=== PATIENT | male | born 1985 | race Caucasian/White ===

== ENCOUNTER 2021-03-12 20:18 | Inpatient (IN) | payer OTHER ==
[2021-03-12] MEDS ORDERED: Thiamine 100 MG Tab PO ONE (21:22)
[2021-03-12] MEDS ORDERED: Sodium Chloride 0.9% 2.5 ML Syringe FLUSH PRN (21:22)
[2021-03-12] MEDS ORDERED: Sodium Chloride 0.9% 10 ML Syringe FLUSH PRN (21:22)
[2021-03-12] MEDS ORDERED: Folic Acid 1 MG Tab PO ONE (21:22)
[2021-03-12] MEDS ORDERED: Ondansetron 4 MG/2 ML SDV IVPUSH STA (21:49)
--- NOTE | 2021-03-12 22:07 | EDM.PDOC ---
ED HPI GENERAL MEDICAL PROBLEM - General Chief Complaint: Drug or Alcohol Abuse Stated Complaint: ANXIETY, ALCOHOL Time Seen by Provider: 03/12/21 20:59 - History of Present Illness INITIAL COMMENTS - FREE TEXT/NARRATIVE: 35-year-old male presents with concerns for alcohol withdrawal. For the last 2 months patient has been drinking approximately 1/5 of vodka twice daily. No nausea or vomiting. Patient does have significant tremor when he does not drink. He denies history of seizure. He denies any HI or SI. He denies any vomiting. He denies any other medications or medical problems he denies any other drugs. He states that when he does not drink he develops profound shaking and then drinks in order to stop the shakes. - Related Data Allergies Allergy/AdvReac Type Severity Reaction Status Date / Time No Known Allergies Allergy Verified 03/12/21 20:54 Home Meds: Home Meds . [No Known Home Meds] 03/12/21 [History] ED ROS GENERAL - Review of Systems Review Of Systems: See Below Free Text/Narrative/Comment: General: Per HPI Skin: No rash. Eyes: No vision problems. ENT: No sore throat. Neck: No neck stiffness. Respiratory: No shortness of breath. Cardiac: No chest pain. Gastrointestinal: No nausea, vomiting or abdominal pain. Urinary: No dysuria. Musculoskeletal: No myalgias/arthralgias. Neurologic: Per HPI ED EXAM, GENERAL - Physical Exam Exam: See Below Free Text/Narrative:: General Appearance: No acute distress, appears comfortable Skin: No rash HEENT: Normocephalic/atraumatic, sclera anicteric, mucous membranes moist Neck: Normal range of motion Chest and Lungs: Bilateral breath sounds, clear to auscultation Cardiovascular: Regular rate and rhythm, no murmur Abdomen: Soft, non-tender Back: Normal Musculoskeletal: No edema or tenderness Neurologic: Awake, alert, no obvious deficits, moving all extremities, appears anxious, involuntary tremor, tongue fasciculations Psychiatric: Appropriate, cooperative Course - Vital Signs Last Recorded V/S: Last Vital Signs Temp 98.6 F 03/12/21 20:47 Pulse 113 H 03/13/21 00:23 Resp 20 03/13/21 00:23 BP 124/84 03/13/21 00:23 Pulse Ox 95 03/13/21 00:23 - Orders/Labs/Meds Orders: Active Orders 24 hr Category Date Time Status Sodium Chloride 0.9% [Saline Flush] Med 03/12/21 21:22 Active 10 ml FLUSH ASDIRECTED PRN Sodium Chloride 0.9% [Saline Flush] Med 03/12/21 21:22 Active 2.5 ml FLUSH ASDIRECTED PRN Saline Lock Insert [OM.PC] Stat Oth 03/12/21 21:22 Ordered Medication Orders Sodium Chloride (Sodium Chloride 0.9% 10 Ml Syringe) 10 ml FLUSH ASDIRECTED PRN PRN Reason: Keep Vein Open Sodium Chloride (Sodium Chloride 0.9% 2.5 Ml Syringe) 2.5 ml FLUSH ASDIRECTED PRN PRN Reason: Keep Vein Open Labs: Laboratory Tests 03/12/21 03/12/21 03/12/21 Range/Units 20:55 21:45 21:45 WBC 4.56 (4.0-11.0) K/uL RBC 5.20 (4.50-5.90) M/uL Hgb 15.9 (13.0-17.0) g/dL Hct 45.2 (38.0-50.0) % MCV 86.9 (80.0-98.0) fL MCH 30.6 (27.0-32.0) pg MCHC 35.2 (31.0-37.0) g/dL RDW Std Deviation 42.9 (28.0-62.0) fl RDW Coeff of Negrita 14 (11.0-15.0) % Plt Count 215 (150-400) K/uL MPV 8.50 (7.40-12.00) fL Neut % (Auto) 31.8 L (48.0-80.0) % Lymph % (Auto) 56.8 H (16.0-40.0) % [place] % (Auto) 9.4 (0.0-15.0) % Eos % (Auto) 1.3 (0.0-7.0) % Baso % (Auto) 0.7 (0.0-1.5) % Neut # (Auto) 1.5 (1.4-5.7) K/uL Lymph # (Auto) 2.6 H (0.6-2.4) K/uL [place] # (Auto) 0.4 (0.0-0.8) K/uL Eos # (Auto) 0.1 (0.0-0.7) K/uL Baso # (Auto) 0.0 (0.0-0.1) K/uL Nucleated RBC % 0.0 /100WBC Nucleated RBCs # 0 K/uL Sodium 143 (136-148) mmol/L Potassium 3.8 (3.5-5.1) mmol/L Chloride 104 (98-107) mmol/L Carbon Dioxide 26.8 (21.0-32.0) mmol/L BUN 11 (7.0-18.0) mg/dL Creatinine 1.0 (0.8-1.3) mg/dL Est Cr Clr Drug Dosing 126.58 mL/min Estimated GFR (MDRD) > 60.0 ml/min Glucose 95 (74-106) mg/dL Calcium 8.0 L (8.5-10.1) mg/dL Magnesium 2.0 (1.8-2.4) mg/dL Total Bilirubin 0.4 (0.2-1.0) mg/dL AST 153 H (15-37) IU/L ALT 199 H (14-63) IU/L Alkaline Phosphatase 71 (46-116) U/L Total Protein 8.0 (6.4-8.2) g/dL Albumin 4.2 (3.4-5.0) g/dL Globulin 3.8 (2.6-4.0) g/dL Albumin/Globulin Ratio 1.1 (0.9-1.6) Urine Color YELLOW Urine Appearance CLEAR Urine pH 6.5 (5.0-8.0) Ur Specific Trail 1.025 (1.001-1.035) Urine Protein 30 H (NEGATIVE) mg/dL Urine Glucose (UA) NEGATIVE (NEGATIVE) mg/dL Urine Ketones NEGATIVE (NEGATIVE) mg/dL Urine Occult Blood NEGATIVE (NEGATIVE) Urine Nitrite NEGATIVE (NEGATIVE) Urine Bilirubin NEGATIVE (NEGATIVE) Urine Urobilinogen 1.0 (<2.0) EU/dL Ur Leukocyte Esterase NEGATIVE (NEGATIVE) Urine RBC 0-2 (0-2/HPF) Urine WBC 0-2 (0-5/HPF) Ur Epithelial Cells RARE (NONE-FEW) Urine Bacteria RARE (NEGATIVE) Urine Mucus LIGHT (NONE-MOD) Ethyl Alcohol 371 mg/dL SARS-CoV-2 RNA (SYEDA) (NEGATIVE) 03/12/21 Range/Units 23:20 WBC (4.0-11.0) K/uL RBC (4.50-5.90) M/uL Hgb (13.0-17.0) g/dL Hct (38.0-50.0) % MCV (80.0-98.0) fL MCH (27.0-32.0) pg MCHC (31.0-37.0) g/dL RDW Std Deviation (28.0-62.0) fl RDW Coeff of Negrita (11.0-15.0) % Plt Count (150-400) K/uL MPV (7.40-12.00) fL Neut % (Auto) (48.0-80.0) % Lymph % (Auto) (16.0-40.0) % [place] % (Auto) (0.0-15.0) % Eos % (Auto) (0.0-7.0) % Baso % (Auto) (0.0-1.5) % Neut # (Auto) (1.4-5.7) K/uL Lymph # (Auto) (0.6-2.4) K/uL [place] # (Auto) (0.0-0.8) K/uL Eos # (Auto) (0.0-0.7) K/uL Baso # (Auto) (0.0-0.1) K/uL Nucleated RBC % /100WBC Nucleated RBCs # K/uL Sodium (136-148) mmol/L Potassium (3.5-5.1) mmol/L Chloride (98-107) mmol/L Carbon Dioxide (21.0-32.0) mmol/L BUN (7.0-18.0) mg/dL Creatinine (0.8-1.3) mg/dL Est Cr Clr Drug Dosing mL/min Estimated GFR (MDRD) ml/min Glucose (74-106) mg/dL Calcium (8.5-10.1) mg/dL Magnesium (1.8-2.4) mg/dL Total Bilirubin (0.2-1.0) mg/dL AST (15-37) IU/L ALT (14-63) IU/L Alkaline Phosphatase (46-116) U/L Total Protein (6.4-8.2) g/dL Albumin (3.4-5.0) g/dL Globulin (2.6-4.0) g/dL Albumin/Globulin Ratio (0.9-1.6) Urine Color Urine Appearance Urine pH (5.0-8.0) Ur Specific Trail (1.001-1.035) Urine Protein (NEGATIVE) mg/dL Urine Glucose (UA) (NEGATIVE) mg/dL Urine Ketones (NEGATIVE) mg/dL Urine Occult Blood (NEGATIVE) Urine Nitrite (NEGATIVE) Urine Bilirubin (NEGATIVE) Urine Urobilinogen (<2.0) EU/dL Ur Leukocyte Esterase (NEGATIVE) Urine RBC (0-2/HPF) Urine WBC (0-5/HPF) Ur Epithelial Cells (NONE-FEW) Urine Bacteria (NEGATIVE) Urine Mucus (NONE-MOD) Ethyl Alcohol mg/dL SARS-CoV-2 RNA (SYEDA) NEGATIVE (NEGATIVE) Meds: Medications Generic Name Dose Route Start Last Admin Trade Name Mitchell PRN Reason Stop Dose Admin Sodium Chloride 10 ml 03/12/21 21:22 Sodium Chloride 0.9% 10 Ml Syringe FLUSH ASDIRECTED PRN Keep Vein Open Sodium Chloride 2.5 ml 03/12/21 21:22 Sodium Chloride 0.9% 2.5 Ml Syringe FLUSH ASDIRECTED PRN Keep Vein Open Discontinued Medications Generic Name Dose Route Start Last Admin Trade Name Mitchell PRN Reason Stop Dose Admin Diazepam 5 mg 03/12/21 23:21 03/12/21 23:25 Diazepam 10 Mg/2 Ml Syringe IVPUSH 03/12/21 23:22 5 mg ONETIME ONE Administration Diazepam Confirm 03/12/21 23:23 03/13/21 00:22 Diazepam 10 Mg/2 Ml Syringe Administered 03/12/21 23:24 Not Given Dose 10 mg .ROUTE .STK-MED ONE Diazepam 10 mg 03/12/21 23:45 03/13/21 00:21 Diazepam 10 Mg/2 Ml Syringe IVPUSH 03/12/21 23:46 10 mg ONETIME ONE Administration Folic Acid 1 mg 03/12/21 21:22 03/12/21 22:19 Folic Acid 1 Mg Tab PO 03/12/21 21:23 1 mg ONETIME ONE Administration Ondansetron HCl 4 mg 03/12/21 21:49 03/12/21 22:00 Ondansetron 4 Mg/2 Ml Sdv IVPUSH 03/12/21 21:50 4 mg ONETIME STA Administration Thiamine HCl 100 mg 03/12/21 21:22 03/12/21 22:19 Thiamine 100 Mg Tab PO 03/12/21 21:23 100 mg ONETIME ONE Administration Departure - Departure Time of Disposition: 00:52 Disposition: Admitted As Inpatient 66 Condition: Fair Clinical Impression: Alcohol withdrawal - Discharge Information Referrals: PCP,None [Primary Care Provider] - Forms: ED Department Discharge Sepsis Event Note (ED) - Evaluation Sepsis Screening Result: No Definite Risk - Focused Exam Vital Signs: Vital Signs Temp Pulse Resp BP Pulse Ox 03/13/21 00:23 113 H 20 124/84 95 03/12/21 20:47 98.6 F 106 H 16 151/102 H 95 - My Orders Last 24 Hours: My Active Orders 03/12/21 21:22 Sodium Chloride 0.9% [Saline Flush] 10 ml FLUSH ASDIRECTED PRN Sodium Chloride 0.9% [Saline Flush] 2.5 ml FLUSH ASDIRECTED PRN Saline Lock Insert [OM.PC] Stat - Assessment/Plan Last 24 Hours: My Active Orders 03/12/21 21:22 Sodium Chloride 0.9% [Saline Flush] 10 ml FLUSH ASDIRECTED PRN Sodium Chloride 0.9% [Saline Flush] 2.5 ml FLUSH ASDIRECTED PRN Saline Lock Insert [OM.PC] Stat Assessment:: 35-year-old male presents with symptoms that are consistent with alcohol withdrawal. His CIWA for the nurses is 19. And that we does have alcohol in h is system my exam is also consistent with his acute alcohol withdrawal. He has tremor he has tongue fasciculations as well. Patient will be given 5 of IV Valium and we will repeat the CIWA 15 minutes later. Given the severity of his withdrawal despite still having alcohol in his system I think admission for stabilization is appropriate and the patient agrees with this. He was given thiamine and folate and his electrolytes are good and do not require repletion at this point. He does not have a prior history of seizure. 0050: Repeat CIWA after 10 mg valium is 10. Pt discussed with Dr. Trevino and given very heavy etOH hx will place in ICU overnight.
[2021-03-12 22:19] LABS: BLOOD UREA NITROGEN,BUN 11 mg/dL (7.0-18.0); CARBON DIOXIDE,CO2 26.8 mmol/L (21.0-32.0); CHLORIDE,CL 104 mmol/L (98-107); GLUCOSE RANDOM 95 mg/dL (74-106); POTASSIUM,K 3.8 mmol/L (3.5-5.1); SODIUM,NA 143 mmol/L (136-148)
[2021-03-13] MEDS ORDERED: Nicotine 21 MG/24 Hr Patch ONE (01:01)
[2021-03-13] MEDS: Nicotine 21 MG/24 Hr Patch TRDERM SCH ×2 (01:03→08:30)
[2021-03-13] MEDS: Sodium Chloride 0.9% 1,000 ML IV SCH ×3 (01:29→17:41)
--- NOTE | 2021-03-13 02:26 | PCM.HP.2 ---
H&P History of Present Illness - General Date of Service: 03/13/21 Admit Problem/Dx: Admission Diagnosis/Problem Admission Diagnosis/Problem Alcohol withdrawal syndrome - History of Present Illness Initial Comments - Free Text/Narative: 35 yo male with pmh of alcohol abuse presents to the ED requesting help detox. Patient reports he drinks a liter of vodka a day. For the past five years he has been drinking on and off. He reports for the past three days he has not slept. He reports he drinks in order to help him sleep. He reports anxiety over his family situation. When he stops drinking he reports severe tremors. - Related Data Allergies/Adverse Reactions: Allergies Allergy/AdvReac Type Severity Reaction Status Date / Time No Known Allergies Allergy Verified 03/12/21 20:54 Home Medications: Home Meds ARIPiprazole [Abilify] 10 mg PO DAILY 03/13/21 [History] Zolpidem Tartrate 5 mg PO Q2D PRN 03/13/21 [History] hydrOXYzine pamoate [Hydroxyzine Pamoate] 25 mg PO QID PRN 03/13/21 [History] valACYclovir [Valtrex] 1 gm PO BID 03/13/21 [History] Past Medical History - Past Health History Medical/Surgical History: Denies Medical/Surgical History Psychiatric History: Reports: Anxiety Social & Family History - Family History Family Medical History: No Pertinent Family History - Tobacco Use Tobacco Use Status *Q: Never Tobacco User Second Hand Smoke Exposure: No - Recreational Drug Use Recreational Drug Use: No H&P Review of Systems - Review of Systems: Review Of Systems: Comprehensive ROS is negative, except as noted in HPI. Exam - Exam Exam: See Below - Vital Signs Vital Signs: Last Vital Signs Temp 37.0 C 03/12/21 20:47 Pulse 102 H 03/13/21 01:34 Resp 18 03/13/21 01:34 BP 131/84 03/13/21 01:34 Pulse Ox 95 03/13/21 01:34 Weight: 95.254 kg - Exam General: Alert, Oriented HEENT: Mucosa Moist & [place] Neck: Supple Lungs: Clear to Auscultation, Normal Respiratory Effort Cardiovascular: Regular Rate, Regular Rhythm GI/Abdominal Exam: Normal Bowel Sounds, Soft, Non-Tender Extremities: Non-Tender, No Pedal Edema Skin: Warm, Dry, Intact Neurological: Cranial Nerves Intact. No: Focal Deficit - Patient Data Lab Results Last 24 hrs: Laboratory Results - last 24 hr 03/12/21 03/12/21 03/12/21 Range/Units 20:55 21:45 21:45 WBC 4.56 (4.0-11.0) K/uL RBC 5.20 (4.50-5.90) M/uL Hgb 15.9 (13.0-17.0) g/dL Hct 45.2 (38.0-50.0) % MCV 86.9 (80.0-98.0) fL MCH 30.6 (27.0-32.0) pg MCHC 35.2 (31.0-37.0) g/dL RDW Std Deviation 42.9 (28.0-62.0) fl RDW Coeff of Negrita 14 (11.0-15.0) % Plt Count 215 (150-400) K/uL MPV 8.50 (7.40-12.00) fL Neut % (Auto) 31.8 L (48.0-80.0) % Lymph % (Auto) 56.8 H (16.0-40.0) % [place] % (Auto) 9.4 (0.0-15.0) % Eos % (Auto) 1.3 (0.0-7.0) % Baso % (Auto) 0.7 (0.0-1.5) % Neut # (Auto) 1.5 (1.4-5.7) K/uL Lymph # (Auto) 2.6 H (0.6-2.4) K/uL [place] # (Auto) 0.4 (0.0-0.8) K/uL Eos # (Auto) 0.1 (0.0-0.7) K/uL Baso # (Auto) 0.0 (0.0-0.1) K/uL Nucleated RBC % 0.0 /100WBC Nucleated RBCs # 0 K/uL Sodium 143 (136-148) mmol/L Potassium 3.8 (3.5-5.1) mmol/L Chloride 104 (98-107) mmol/L Carbon Dioxide 26.8 (21.0-32.0) mmol/L BUN 11 (7.0-18.0) mg/dL Creatinine 1.0 (0.8-1.3) mg/dL Est Cr Clr Drug Dosing 126.58 mL/min Estimated GFR (MDRD) > 60.0 ml/min Glucose 95 (74-106) mg/dL Calcium 8.0 L (8.5-10.1) mg/dL Magnesium 2.0 (1.8-2.4) mg/dL Total Bilirubin 0.4 (0.2-1.0) mg/dL AST 153 H (15-37) IU/L ALT 199 H (14-63) IU/L Alkaline Phosphatase 71 (46-116) U/L Total Protein 8.0 (6.4-8.2) g/dL Albumin 4.2 (3.4-5.0) g/dL Globulin 3.8 (2.6-4.0) g/dL Albumin/Globulin Ratio 1.1 (0.9-1.6) Urine Color YELLOW Urine Appearance CLEAR Urine pH 6.5 (5.0-8.0) Ur Specific [place] 1.025 (1.001-1.035) Urine Protein 30 H (NEGATIVE) mg/dL Urine Glucose (UA) NEGATIVE (NEGATIVE) mg/dL Urine Ketones NEGATIVE (NEGATIVE) mg/dL Urine Occult Blood NEGATIVE (NEGATIVE) Urine Nitrite NEGATIVE (NEGATIVE) Urine Bilirubin NEGATIVE (NEGATIVE) Urine Urobilinogen 1.0 (<2.0) EU/dL Ur Leukocyte Esterase NEGATIVE (NEGATIVE) Urine RBC 0-2 (0-2/HPF) Urine WBC 0-2 (0-5/HPF) Ur Epithelial Cells RARE (NONE-FEW) Urine Bacteria RARE (NEGATIVE) Urine Mucus LIGHT (NONE-MOD) Ethyl Alcohol 371 mg/dL SARS-CoV-2 RNA (SYEDA) (NEGATIVE) 03/12/21 Range/Units 23:20 WBC (4.0-11.0) K/uL RBC (4.50-5.90) M/uL Hgb (13.0-17.0) g/dL Hct (38.0-50.0) % MCV (80.0-98.0) fL MCH (27.0-32.0) pg MCHC (31.0-37.0) g/dL RDW Std Deviation (28.0-62.0) fl RDW Coeff of Negrita (11.0-15.0) % Plt Count (150-400) K/uL MPV (7.40-12.00) fL Neut % (Auto) (48.0-80.0) % Lymph % (Auto) (16.0-40.0) % [place] % (Auto) (0.0-15.0) % Eos % (Auto) (0.0-7.0) % Baso % (Auto) (0.0-1.5) % Neut # (Auto) (1.4-5.7) K/uL Lymph # (Auto) (0.6-2.4) K/uL [place] # (Auto) (0.0-0.8) K/uL Eos # (Auto) (0.0-0.7) K/uL Baso # (Auto) (0.0-0.1) K/uL Nucleated RBC % /100WBC Nucleated RBCs # K/uL Sodium (136-148) mmol/L Potassium (3.5-5.1) mmol/L Chloride (98-107) mmol/L Carbon Dioxide (21.0-32.0) mmol/L BUN (7.0-18.0) mg/dL Creatinine (0.8-1.3) mg/dL Est Cr Clr Drug Dosing mL/min Estimated GFR (MDRD) ml/min Glucose (74-106) mg/dL Calcium (8.5-10.1) mg/dL Magnesium (1.8-2.4) mg/dL Total Bilirubin (0.2-1.0) mg/dL AST (15-37) IU/L ALT (14-63) IU/L Alkaline Phosphatase (46-116) U/L Total Protein (6.4-8.2) g/dL Albumin (3.4-5.0) g/dL Globulin (2.6-4.0) g/dL Albumin/Globulin Ratio (0.9-1.6) Urine Color Urine Appearance Urine pH (5.0-8.0) Ur Specific [place] (1.001-1.035) Urine Protein (NEGATIVE) mg/dL Urine Glucose (UA) (NEGATIVE) mg/dL Urine Ketones (NEGATIVE) mg/dL Urine Occult Blood (NEGATIVE) Urine Nitrite (NEGATIVE) Urine Bilirubin (NEGATIVE) Urine Urobilinogen (<2.0) EU/dL Ur Leukocyte Esterase (NEGATIVE) Urine RBC (0-2/HPF) Urine WBC (0-5/HPF) Ur Epithelial Cells (NONE-FEW) Urine Bacteria (NEGATIVE) Urine Mucus (NONE-MOD) Ethyl Alcohol mg/dL SARS-CoV-2 RNA (SYEDA) NEGATIVE (NEGATIVE) Result Diagrams: 03/13/21 06:30 03/13/21 06:30 Sepsis Event Note - Evaluation Sepsis Screening Result: No Definite Risk - Focused Exam Vital Signs: Vital Signs Temp Pulse Resp BP Pulse Ox 03/13/21 01:34 102 H 18 131/84 95 03/13/21 00:23 113 H 20 124/84 95 03/12/21 20:47 37.0 C 106 H 16 151/102 H 95 Problem List Initiated/Reviewed/Updated: Yes Orders Last 24hrs: Active Orders 24 hr Category Date Time Status Patient Status [ADT] Routine ADT 03/13/21 00:52 Active Antiembolic Devices [RC] Q12H Care 03/13/21 01:08 Active Oxygen Therapy [RC] PRN Care 03/13/21 01:07 Active Up ad Justa [RC] ASDIRECTED Care 03/13/21 01:07 Active VTE/DVT Education [RC] PER UNIT ROUTINE Care 03/13/21 01:07 Active Vital Signs [RC] Q1H Care 03/13/21 01:07 Active Regular Diet [DIET] Diet 03/13/21 Breakfast Active CBC WITH AUTO DIFF [HEME] AM Lab 03/13/21 05:11 Ordered COMPREHENSIVE METABOLIC PN,CMP [CHEM] AM Lab 03/13/21 05:11 Ordered INR,PT,PROTHROMBIN TIME [COAG] AM Lab 03/13/21 05:11 Ordered MAGNESIUM [CHEM] AM Lab 03/13/21 05:11 Ordered PHOSPHORUS [CHEM] AM Lab 03/13/21 05:11 Ordered Folic Acid Med 03/13/21 09:00 Active 1 mg SUBCUT DAILY LORazepam [Ativan] Med 03/13/21 01:05 Active See Protocol IVPUSH Q4H PRN Nicotine [Habitrol] Med 03/13/21 01:00 Active 21 mg TRDERM DAILY Sodium Chloride 0.9% [Normal Saline] 1,000 ml Med 03/13/21 01:15 Active IV ASDIRECTED Sodium Chloride 0.9% [Saline Flush] Med 08/02/21 21:22 Active 10 ml FLUSH ASDIRECTED PRN Sodium Chloride 0.9% [Saline Flush] Med 03/12/21 21:22 Active 2.5 ml FLUSH ASDIRECTED PRN Thiamine [Vitamin B-1] 100 mg Med 03/13/21 09:00 Active Sodium Chloride 0.9% [Normal Saline] 100 ml IV DAILY diazePAM [Valium.] Med 03/13/21 09:00 Active 5 mg PO BID Saline Lock Insert [OM.PC] Stat Oth 03/12/21 21:22 Ordered Sequential Compression Device [OM.PC] Per Unit Routine Oth 03/13/21 01:07 Ordered Resuscitation Status Routine Resus Stat 03/13/21 01:07 Ordered Medication Orders Diazepam (Diazepam 5 Mg Tab) 5 mg PO BID KEVIN Folic Acid (Folic Acid 50 Mg/10 Ml Mdv) 1 mg SUBCUT DAILY [facility] Thiamine HCl 100 mg/ Sodium (Chloride) 101 mls @ 202 mls/hr IV DAILY [facility] Sodium Chloride (Normal Saline) 1,000 mls @ 125 mls/hr IV ASDIRECTED [facility] Last Admin: 03/13/21 01:29 Dose: 125 mls/hr Documented by: SARAH Lorazepam (Lorazepam 2 Mg/Ml Sdv) 0 mg IVPUSH Q4H PRN; Protocol PRN Reason: CIWWA Nicotine (Nicotine 21 Mg/24 Hr Patch) 21 mg TRDERM DAILY [facility] Last Admin: 03/13/21 01:03 Dose: 21 mg Documented by: SARAH Sodium Chloride (Sodium Chloride 0.9% 10 Ml Syringe) 10 ml FLUSH ASDIRECTED PRN PRN Reason: Keep Vein Open Sodium Chloride (Sodium Chloride 0.9% 2.5 Ml Syringe) 2.5 ml FLUSH ASDIRECTED PRN PRN Reason: Keep Vein Open Assessment/Plan Comment:: 35 yo male admitted for ETOH detox. We will place on CIWAA protocol with prn ativan. Patient was given valium in the ED. We will continue Valium BID. We will give thiamine and folic acid.
[2021-03-13] MEDS: LORazepam 2 MG/ML SDV IVPUSH PRN ×8 (02:55→21:47)
--- NOTE | 2021-03-13 05:45 | PN ---
THC Physician - Brief Progress [id number]/03/2021 05:31[facility] Yesica willoughby, OZ - HARMONY (DEEPA) - ORLY SINGHDate of Service 03/13/2021 05:31HPI/Events o f Note HPI: 35 y old male with alcohol addiction requested help with detoxificationDrinking 1 liter v odka dailyPlaced on CIWA with ativan On videoResting, [id number] 134/71 95% - was 93% recorded onceA /RecAtivan as per CIWAAnxiety/insomnia to be evaluated K 3.8 being recheckedReceived valiumOn thiamin e, folic acidMonitor oxygenationD/w RNInterventions Major-Other: alcohol withdrawalElectronically Sig benji by: Dyllan Pham) on 03/13/2021 05:45
[2021-03-13 07:07] LABS: BLOOD UREA NITROGEN,BUN 13 mg/dL (7.0-18.0); CARBON DIOXIDE,CO2 28.6 mmol/L (21.0-32.0); CHLORIDE,CL 103 mmol/L (98-107); GLUCOSE RANDOM 89 mg/dL (74-106); POTASSIUM,K 3.1 mmol/L (3.5-5.1); SODIUM,NA 139 mmol/L (136-148)
[2021-03-13] MEDS ORDERED: Sodium Chloride 0.9% 2.5 ML Syringe FLUSH PRN (08:12)
--- NOTE | 2021-03-13 08:17 | PCM.PN ---
- General Info Date of Service: 03/13/21 Admission Dx/Problem (Free Text): Admission Diagnosis/Problem Admission Diagnosis/Problem Alcohol withdrawal syndrome Subjective Update: Feeling nauseated this morning, but also hungry. Ate small amount of breakfast. Denies chest pain or SOB. Tremors continue with ataxia and diaphoresis. Denies hallucinations. Not urinating Functional Status: Reports: Pain Controlled, Tolerating Diet. Denies: Ambu lating, Urinating - Review of Systems General: Reports: Weakness, Fatigue, Malaise HEENT: Reports: No Symptoms. Denies: Headaches, Sore Throat, Visual Changes Pulmonary: Reports: No Symptoms. Denies: Shortness of Breath Cardiovascular: Reports: No Symptoms. Denies: Chest Pain Gastrointestinal: Reports: Constipation, Nausea. Denies: Abdominal Pain, Vomiting Genitourinary: Reports: No Symptoms. Denies: Dysuria, Frequency, Burning Musculoskeletal: Reports: No Symptoms Skin: Reports: No Symptoms Neurological: Reports: Tremors, Difficulty Walking (ataxia) Psychiatric: Reports: No Symptoms - Patient Data Vitals - Most Recent: Last Vital Signs Temp 98 F 03/13/21 03:00 Pulse 102 H 03/13/21 01:34 Resp 18 03/13/21 07:00 BP 128/78 03/13/21 07:00 Pulse Ox 95 03/13/21 07:00 Weight - Most Recent: 79.787 kg I&O - Last 24 Hours: Intake & Output 03/12/21 03/13/21 03/13/21 22:59 06:59 14:59 Intake Total 1050 Balance 1050 Lab Results Last 24 Hours: Laboratory Results - last 24 hr 03/12/21 03/12/21 03/12/21 Range/Units 20:55 21:45 21:45 WBC 4.56 (4.0-11.0) K/uL RBC 5.20 (4.50-5.90) M/uL Hgb 15.9 (13.0-17.0) g/dL Hct 45.2 (38.0-50.0) % MCV 86.9 (80.0-98.0) fL MCH 30.6 (27.0-32.0) pg MCHC 35.2 (31.0-37.0) g/dL RDW Std Deviation 42.9 (28.0-62.0) fl RDW Coeff of Negrita 14 (11.0-15.0) % Plt Count 215 (150-400) K/uL MPV 8.50 (7.40-12.00) fL Neut % (Auto) 31.8 L (48.0-80.0) % Lymph % (Auto) 56.8 H (16.0-40.0) % [place] % (Auto) 9.4 (0.0-15.0) % Eos % (Auto) 1.3 (0.0-7.0) % Baso % (Auto) 0.7 (0.0-1.5) % Neut # (Auto) 1.5 (1.4-5.7) K/uL Lymph # (Auto) 2.6 H (0.6-2.4) K/uL [place] # (Auto) 0.4 (0.0-0.8) K/uL Eos # (Auto) 0.1 (0.0-0.7) K/uL Baso # (Auto) 0.0 (0.0-0.1) K/uL Nucleated RBC % 0.0 /100WBC Nucleated RBCs # 0 K/uL INR Sodium 143 (136-148) mmol/L Potassium 3.8 (3.5-5.1) mmol/L Chloride 104 (98-107) mmol/L Carbon Dioxide 26.8 (21.0-32.0) mmol/L BUN 11 (7.0-18.0) mg/dL Creatinine 1.0 (0.8-1.3) mg/dL Est Cr Clr Drug Dosing 126.58 mL/min Estimated GFR (MDRD) > 60.0 ml/min Glucose 95 (74-106) mg/dL Calcium 8.0 L (8.5-10.1) mg/dL Phosphorus (2.6-4.7) mg/dL Magnesium 2.0 (1.8-2.4) mg/dL Total Bilirubin 0.4 (0.2-1.0) mg/dL AST 153 H (15-37) IU/L ALT 199 H (14-63) IU/L Alkaline Phosphatase 71 (46-116) U/L Total Protein 8.0 (6.4-8.2) g/dL Albumin 4.2 (3.4-5.0) g/dL Globulin 3.8 (2.6-4.0) g/dL Albumin/Globulin Ratio 1.1 (0.9-1.6) Urine Color YELLOW Urine Appearance CLEAR Urine pH 6.5 (5.0-8.0) Ur Specific Buckner 1.025 (1.001-1.035) Urine Protein 30 H (NEGATIVE) mg/dL Urine Glucose (UA) NEGATIVE (NEGATIVE) mg/dL Urine Ketones NEGATIVE (NEGATIVE) mg/dL Urine Occult Blood NEGATIVE (NEGATIVE) Urine Nitrite NEGATIVE (NEGATIVE) Urine Bilirubin NEGATIVE (NEGATIVE) Urine Urobilinogen 1.0 (<2.0) EU/dL Ur Leukocyte Esterase NEGATIVE (NEGATIVE) Urine RBC 0-2 (0-2/HPF) Urine WBC 0-2 (0-5/HPF) Ur Epithelial Cells RARE (NONE-FEW) Urine Bacteria RARE (NEGATIVE) Urine Mucus LIGHT (NONE-MOD) Ethyl Alcohol 371 mg/dL SARS-CoV-2 RNA (SYEDA) (NEGATIVE) 03/12/21 03/13/21 03/13/21 Range/Units 23:20 06:30 06:30 WBC 5.61 (4.0-11.0) K/uL RBC 4.29 L (4.50-5.90) M/uL Hgb 13.0 (13.0-17.0) g/dL Hct 37.4 L (38.0-50.0) % MCV 87.2 (80.0-98.0) fL MCH 30.3 (27.0-32.0) pg MCHC 34.8 (31.0-37.0) g/dL RDW Std Deviation 42.9 (28.0-62.0) fl RDW Coeff of Negrita 13 (11.0-15.0) % Plt Count 183 (150-400) K/uL MPV 8.20 (7.40-12.00) fL Neut % (Auto) 36.3 L (48.0-80.0) % Lymph % (Auto) 50.8 H (16.0-40.0) % [place] % (Auto) 10.3 (0.0-15.0) % Eos % (Auto) 2.1 (0.0-7.0) % Baso % (Auto) 0.5 (0.0-1.5) % Neut # (Auto) 2.0 (1.4-5.7) K/uL Lymph # (Auto) 2.9 H (0.6-2.4) K/uL [place] # (Auto) 0.6 (0.0-0.8) K/uL Eos # (Auto) 0.1 (0.0-0.7) K/uL Baso # (Auto) 0.0 (0.0-0.1) K/uL Nucleated RBC % 0.0 /100WBC Nucleated RBCs # 0 K/uL INR 0.96 Sodium (136-148) mmol/L Potassium (3.5-5.1) mmol/L Chloride (98-107) mmol/L Carbon Dioxide (21.0-32.0) mmol/L BUN (7.0-18.0) mg/dL Creatinine (0.8-1.3) mg/dL Est Cr Clr Drug Dosing mL/min Estimated GFR (MDRD) ml/min Glucose (74-106) mg/dL Calcium (8.5-10.1) mg/dL Phosphorus (2.6-4.7) mg/dL Magnesium (1.8-2.4) mg/dL Total Bilirubin (0.2-1.0) mg/dL AST (15-37) IU/L ALT (14-63) IU/L Alkaline Phosphatase (46-116) U/L Total Protein (6.4-8.2) g/dL Albumin (3.4-5.0) g/dL Globulin (2.6-4.0) g/dL Albumin/Globulin Ratio (0.9-1.6) Urine Color Urine Appearance Urine pH (5.0-8.0) Ur Specific Buckner (1.001-1.035) Urine Protein (NEGATIVE) mg/dL Urine Glucose (UA) (NEGATIVE) mg/dL Urine Ketones (NEGATIVE) mg/dL Urine Occult Blood (NEGATIVE) Urine Nitrite (NEGATIVE) Urine Bilirubin (NEGATIVE) Urine Urobilinogen (<2.0) EU/dL Ur Leukocyte Esterase (NEGATIVE) Urine RBC (0-2/HPF) Urine WBC (0-5/HPF) Ur Epithelial Cells (NONE-FEW) Urine Bacteria (NEGATIVE) Urine Mucus (NONE-MOD) Ethyl Alcohol mg/dL SARS-CoV-2 RNA (SYEDA) NEGATIVE (NEGATIVE) 03/13/21 Range/Units 06:30 WBC (4.0-11.0) K/uL RBC (4.50-5.90) M/uL Hgb (13.0-17.0) g/dL Hct (38.0-50.0) % MCV (80.0-98.0) fL MCH (27.0-32.0) pg MCHC (31.0-37.0) g/dL RDW Std Deviation (28.0-62.0) fl RDW Coeff of Negrita (11.0-15.0) % Plt Count (150-400) K/uL MPV (7.40-12.00) fL Neut % (Auto) (48.0-80.0) % Lymph % (Auto) (16.0-40.0) % [place] % (Auto) (0.0-15.0) % Eos % (Auto) (0.0-7.0) % Baso % (Auto) (0.0-1.5) % Neut # (Auto) (1.4-5.7) K/uL Lymph # (Auto) (0.6-2.4) K/uL [place] # (Auto) (0.0-0.8) K/uL Eos # (Auto) (0.0-0.7) K/uL Baso # (Auto) (0.0-0.1) K/uL Nucleated RBC % /100WBC Nucleated RBCs # K/uL INR Sodium 139 (136-148) mmol/L Potassium 3.1 L (3.5-5.1) mmol/L Chloride 103 (98-107) mmol/L Carbon Dioxide 28.6 (21.0-32.0) mmol/L BUN 13 (7.0-18.0) mg/dL Creatinine 1.0 (0.8-1.3) mg/dL Est Cr Clr Drug Dosing 116.36 mL/min Estimated GFR (MDRD) > 60.0 ml/min Glucose 89 (74-106) mg/dL Calcium 7.7 L (8.5-10.1) mg/dL Phosphorus 3.5 (2.6-4.7) mg/dL Magnesium 1.4 L (1.8-2.4) mg/dL Total Bilirubin 0.5 (0.2-1.0) mg/dL AST 117 H (15-37) IU/L ALT 163 H (14-63) IU/L Alkaline Phosphatase 54 (46-116) U/L Total Protein 6.3 L (6.4-8.2) g/dL Albumin 3.3 L (3.4-5.0) g/dL Globulin 3.0 (2.6-4.0) g/dL Albumin/Globulin Ratio 1.1 (0.9-1.6) Urine Color Urine Appearance Urine pH (5.0-8.0) Ur Specific Buckner (1.001-1.035) Urine Protein (NEGATIVE) mg/dL Urine Glucose (UA) (NEGATIVE) mg/dL Urine Ketones (NEGATIVE) mg/dL Urine Occult Blood (NEGATIVE) Urine Nitrite (NEGATIVE) Urine Bilirubin (NEGATIVE) Urine Urobilinogen (<2.0) EU/dL Ur Leukocyte Esterase (NEGATIVE) Urine RBC (0-2/HPF) Urine WBC (0-5/HPF) Ur Epithelial Cells (NONE-FEW) Urine Bacteria (NEGATIVE) Urine Mucus (NONE-MOD) Ethyl Alcohol mg/dL SARS-CoV-2 RNA (SYEDA) (NEGATIVE) Med Orders - Current: Current Medications Acetaminophen (Acetaminophen 325 Mg Tab) 650 mg PO Q4H PRN PRN Reason: Pain/Fever Diazepam (Diazepam 5 Mg Tab) 5 mg PO BID FOR[facility]LY [facility], [facility]1983 Folic Acid (Folic Acid 50 Mg/10 Ml Mdv) 1 mg SUBCUT DAILY FORMERLY [facility], 1928–1983 Sodium Chloride (Normal Saline) 1,000 mls @ 125 mls/hr IV ASDIRECTED FORMERLY [facility], 1928–1983 Last Admin: 03/13/21 01:29 Dose: 125 mls/hr Documented by: Magnesium Sulfate 4 gm/ Premix 100 mls @ 50 mls/hr IV ONETIME ONE Stop: 03/13/21 10:11 Lorazepam (Lorazepam 2 Mg/Ml Sdv) 0 mg IVPUSH Q4H PRN; Protocol PRN Reason: CIWWA Last Admin: 03/13/21 02:55 Dose: 1 mg Documented by: Nicotine (Nicotine 21 Mg/24 Hr Patch) 21 mg TRDERM DAILY FOR[facility]LY [facility], 1928–1983 Last Admin: 03/13/21 01:03 Dose: 21 mg Documented by: Potassium Chloride (Potassium Chloride 20 Meq Tab.Er) 40 meq PO BID@0830,1300 FOR[facility], [facility]–1983 Stop: 03/13/21 13:01 Sodium Chloride (Sodium Chloride 0.9% 2.5 Ml Syringe) 2.5 ml FLUSH ASDIRECTED PRN PRN Reason: Keep Vein Open Thiamine HCl (Thiamine 200 Mg/2 Ml Mdv) 100 mg IVPUSH DAILY KEVIN Discontinued Medications Diazepam (Diazepam 10 Mg/2 Ml Syringe) 5 mg IVPUSH ONETIME ONE Stop: 03/12/21 23:22 Last Admin: 03/12/21 23:25 Dose: 5 mg Documented by: Diazepam (Diazepam 10 Mg/2 Ml Syringe) Confirm Administered Dose 10 mg .ROUTE .STK-MED ONE Stop: 03/12/21 23:24 Last Admin: 03/13/21 00:22 Dose: Not Given Documented by: Diazepam (Diazepam 10 Mg/2 Ml Syringe) 10 mg IVPUSH ONETIME ONE Stop: 03/12/21 23:46 Last Admin: 03/13/21 00:21 Dose: 10 mg Documented by: Folic Acid (Folic Acid 1 Mg Tab) 1 mg PO ONETIME ONE Stop: 03/12/21 21:23 Last Admin: 03/12/21 22:19 Dose: 1 mg Documented by: Nicotine (Nicotine 21 Mg/24 Hr Patch) Confirm Administered Dose 21 mg .ROUTE .STK-MED ONE Stop: 03/13/21 01:02 Last Admin: 03/13/21 01:08 Dose: Not Given Documented by: Ondansetron HCl (Ondansetron 4 Mg/2 Ml Sdv) 4 mg IVPUSH ONETIME STA Stop: 03/12/21 21:50 Last Admin: 03/12/21 22:00 Dose: 4 mg Documented by: Sodium Chloride (Sodium Chloride 0.9% 10 Ml Syringe) 10 ml FLUSH ASDIRECTED PRN PRN Reason: Keep Vein Open Sodium Chloride (Sodium Chloride 0.9% 2.5 Ml Syringe) 2.5 ml FLUSH ASDIRECTED PRN PRN Reason: Keep Vein Open Thiamine HCl (Thiamine 100 Mg Tab) 100 mg PO ONETIME ONE Stop: 03/12/21 21:23 Last Admin: 03/12/21 22:19 Dose: 100 mg Documented by: - Exam Quality Assessment: Supplemental Oxygen General: Alert, Oriented, Cooperative, No Acute Distress Neck: Supple Lungs: Clear to Auscultation, Normal Respiratory Effort Cardiovascular: Regular Rate, Regular Rhythm GI/Abdominal Exam: Normal Bowel Sounds, Soft, Non-Tender Extremities: Normal Inspection, Normal Range of Motion, Non-Tender, No Pedal Edema Neurological: No New Focal Deficit Psy/Mental Status: Alert, Normal Affect, Normal Mood - Patient Data Lab Results Last 24 hrs: Laboratory Results - last 24 hr 03/12/21 03/12/21 03/12/21 Range/Units 20:55 21:45 21:45 WBC 4.56 (4.0-11.0) K/uL RBC 5.20 (4.50-5.90) M/uL Hgb 15.9 (13.0-17.0) g/dL Hct 45.2 (38.0-50.0) % MCV 86.9 (80.0-98.0) fL MCH 30.6 (27.0-32.0) pg MCHC 35.2 (31.0-37.0) g/dL RDW Std Deviation 42.9 (28.0-62.0) fl RDW Coeff of Negrita 14 (11.0-15.0) % Plt Count 215 (150-400) K/uL MPV 8.50 (7.40-12.00) fL Neut % (Auto) 31.8 L (48.0-80.0) % Lymph % (Auto) 56.8 H (16.0-40.0) % [place] % (Auto) 9.4 (0.0-15.0) % Eos % (Auto) 1.3 (0.0-7.0) % Baso % (Auto) 0.7 (0.0-1.5) % Neut # (Auto) 1.5 (1.4-5.7) K/uL Lymph # (Auto) 2.6 H (0.6-2.4) K/uL [place] # (Auto) 0.4 (0.0-0.8) K/uL Eos # (Auto) 0.1 (0.0-0.7) K/uL Baso # (Auto) 0.0 (0.0-0.1) K/uL Nucleated RBC % 0.0 /100WBC Nucleated RBCs # 0 K/uL INR Sodium 143 (136-148) mmol/L Potassium 3.8 (3.5-5.1) mmol/L Chloride 104 (98-107) mmol/L Carbon Dioxide 26.8 (21.0-32.0) mmol/L BUN 11 (7.0-18.0) mg/dL Creatinine 1.0 (0.8-1.3) mg/dL Est Cr Clr Drug Dosing 126.58 mL/min Estimated GFR (MDRD) > 60.0 ml/min Glucose 95 (74-106) mg/dL Calcium 8.0 L (8.5-10.1) mg/dL Phosphorus (2.6-4.7) mg/dL Magnesium 2.0 (1.8-2.4) mg/dL Total Bilirubin 0.4 (0.2-1.0) mg/dL AST 153 H (15-37) IU/L ALT 199 H (14-63) IU/L Alkaline Phosphatase 71 (46-116) U/L Total Protein 8.0 (6.4-8.2) g/dL Albumin 4.2 (3.4-5.0) g/dL Globulin 3.8 (2.6-4.0) g/dL Albumin/Globulin Ratio 1.1 (0.9-1.6) Urine Color YELLOW Urine Appearance CLEAR Urine pH 6.5 (5.0-8.0) Ur Specific Buckner 1.025 (1.001-1.035) Urine Protein 30 H (NEGATIVE) mg/dL Urine Glucose (UA) NEGATIVE (NEGATIVE) mg/dL Urine Ketones NEGATIVE (NEGATIVE) mg/dL Urine Occult Blood NEGATIVE (NEGATIVE) Urine Nitrite NEGATIVE (NEGATIVE) Urine Bilirubin NEGATIVE (NEGATIVE) Urine Urobilinogen 1.0 (<2.0) EU/dL Ur Leukocyte Esterase NEGATIVE (NEGATIVE) Urine RBC 0-2 (0-2/HPF) Urine WBC 0-2 (0-5/HPF) Ur Epithelial Cells RARE (NONE-FEW) Urine Bacteria RARE (NEGATIVE) Urine Mucus LIGHT (NONE-MOD) Ethyl Alcohol 371 mg/dL SARS-CoV-2 RNA (SYEDA) (NEGATIVE) 03/12/21 03/13/21 03/13/21 Range/Units 23:20 06:30 06:30 WBC 5.61 (4.0-11.0) K/uL RBC 4.29 L (4.50-5.90) M/uL Hgb 13.0 (13.0-17.0) g/dL Hct 37.4 L (38.0-50.0) % MCV 87.2 (80.0-98.0) fL MCH 30.3 (27.0-32.0) pg MCHC 34.8 (31.0-37.0) g/dL RDW Std Deviation 42.9 (28.0-62.0) fl RDW Coeff of Negrita 13 (11.0-15.0) % Plt Count 183 (150-400) K/uL MPV 8.20 (7.40-12.00) fL Neut % (Auto) 36.3 L (48.0-80.0) % Lymph % (Auto) 50.8 H (16.0-40.0) % [place] % (Auto) 10.3 (0.0-15.0) % Eos % (Auto) 2.1 (0.0-7.0) % Baso % (Auto) 0.5 (0.0-1.5) % Neut # (Auto) 2.0 (1.4-5.7) K/uL Lymph # (Auto) 2.9 H (0.6-2.4) K/uL [place] # (Auto) 0.6 (0.0-0.8) K/uL Eos # (Auto) 0.1 (0.0-0.7) K/uL Baso # (Auto) 0.0 (0.0-0.1) K/uL Nucleated RBC % 0.0 /100WBC Nucleated RBCs # 0 K/uL INR 0.96 Sodium (136-148) mmol/L Potassium (3.5-5.1) mmol/L Chloride (98-107) mmol/L Carbon Dioxide (21.0-32.0) mmol/L BUN (7.0-18.0) mg/dL Creatinine (0.8-1.3) mg/dL Est Cr Clr Drug Dosing mL/min Estimated GFR (MDRD) ml/min Glucose (74-106) mg/dL Calcium (8.5-10.1) mg/dL Phosphorus (2.6-4.7) mg/dL Magnesium (1.8-2.4) mg/dL Total Bilirubin (0.2-1.0) mg/dL AST (15-37) IU/L ALT (14-63) IU/L Alkaline Phosphatase (46-116) U/L Total Protein (6.4-8.2) g/dL Albumin (3.4-5.0) g/dL Globulin (2.6-4.0) g/dL Albumin/Globulin Ratio (0.9-1.6) Urine Color Urine Appearance Urine pH (5.0-8.0) Ur Specific Buckner (1.001-1.035) Urine Protein (NEGATIVE) mg/dL Urine Glucose (UA) (NEGATIVE) mg/dL Urine Ketones (NEGATIVE) mg/dL Urine Occult Blood (NEGATIVE) Urine Nitrite (NEGATIVE) Urine Bilirubin (NEGATIVE) Urine Urobilinogen (<2.0) EU/dL Ur Leukocyte Esterase (NEGATIVE) Urine RBC (0-2/HPF) Urine WBC (0-5/HPF) Ur Epithelial Cells (NONE-FEW) Urine Bacteria (NEGATIVE) Urine Mucus (NONE-MOD) Ethyl Alcohol mg/dL SARS-CoV-2 RNA (SYEDA) NEGATIVE (NEGATIVE) 03/13/21 Range/Units 06:30 WBC (4.0-11.0) K/uL RBC (4.50-5.90) M/uL Hgb (13.0-17.0) g/dL Hct (38.0-50.0) % MCV (80.0-98.0) fL MCH (27.0-32.0) pg MCHC (31.0-37.0) g/dL RDW Std Deviation (28.0-62.0) fl RDW Coeff of Negrita (11.0-15.0) % Plt Count (150-400) K/uL MPV (7.40-12.00) fL Neut % (Auto) (48.0-80.0) % Lymph % (Auto) (16.0-40.0) % [place] % (Auto) (0.0-15.0) % Eos % (Auto) (0.0-7.0) % Baso % (Auto) (0.0-1.5) % Neut # (Auto) (1.4-5.7) K/uL Lymph # (Auto) (0.6-2.4) K/uL [place] # (Auto) (0.0-0.8) K/uL Eos # (Auto) (0.0-0.7) K/uL Baso # (Auto) (0.0-0.1) K/uL Nucleated RBC % /100WBC Nucleated RBCs # K/uL INR Sodium 139 (136-148) mmol/L Potassium 3.1 L (3.5-5.1) mmol/L Chloride 103 (98-107) mmol/L Carbon Dioxide 28.6 (21.0-32.0) mmol/L BUN 13 (7.0-18.0) mg/dL Creatinine 1.0 (0.8-1.3) mg/dL Est Cr Clr Drug Dosing 116.36 mL/min Estimated GFR (MDRD) > 60.0 ml/min Glucose 89 (74-106) mg/dL Calcium 7.7 L (8.5-10.1) mg/dL Phosphorus 3.5 (2.6-4.7) mg/dL Magnesium 1.4 L (1.8-2.4) mg/dL Total Bilirubin 0.5 (0.2-1.0) mg/dL AST 117 H (15-37) IU/L ALT 163 H (14-63) IU/L Alkaline Phosphatase 54 (46-116) U/L Total Protein 6.3 L (6.4-8.2) g/dL Albumin 3.3 L (3.4-5.0) g/dL Globulin 3.0 (2.6-4.0) g/dL Albumin/Globulin Ratio 1.1 (0.9-1.6) Urine Color Urine Appearance Urine pH (5.0-8.0) Ur Specific Buckner (1.001-1.035) Urine Protein (NEGATIVE) mg/dL Urine Glucose (UA) (NEGATIVE) mg/dL Urine Ketones (NEGATIVE) mg/dL Urine Occult Blood (NEGATIVE) Urine Nitrite (NEGATIVE) Urine Bilirubin (NEGATIVE) Urine Urobilinogen (<2.0) EU/dL Ur Leukocyte Esterase (NEGATIVE) Urine RBC (0-2/HPF) Urine WBC (0-5/HPF) Ur Epithelial Cells (NONE-FEW) Urine Bacteria (NEGATIVE) Urine Mucus (NONE-MOD) Ethyl Alcohol mg/dL SARS-CoV-2 RNA (SYEDA) (NEGATIVE) Result Diagrams: 03/13/21 06:30 03/13/21 06:30 Sepsis Event Note - Evaluation Sepsis Screening Result: No Definite Risk - Focused Exam Vital Signs: Vital Signs Temp Pulse Resp BP BP Pulse Ox 03/13/21 07:00 18 128/78 95 03/13/21 06:00 18 117/68 95 03/13/21 05:00 15 134/71 95 03/13/21 04:00 19 127/70 93 L 03/13/21 03:00 98 F 19 149/86 H 95 03/13/21 02:00 19 132/82 94 L 03/13/21 01:34 102 H 18 131/84 95 03/13/21 00:23 113 H 20 124/84 95 03/12/21 20:47 98.6 F 106 H 16 151/102 H 95 - Problem List & Annotations (1) Alcohol withdrawal SNOMED Code(s): 512409928 Code(s): F10.239 - ALCOHOL DEPENDENCE WITH WITHDRAWAL, UNSPECIFIED Status: Acute Current Visit: Yes (2) Hypokalemia SNOMED Code(s): 13586380 Code(s): E87.6 - HYPOKALEMIA Status: Acute Current Visit: Yes (3) Hypomagnesemia SNOMED Code(s): 384763166 Code(s): E83.42 - HYPOMAGNESEMIA Status: Acute Current Visit: Yes - Problem List Review Problem List Initiated/Reviewed/Updated: Yes - My Orders Last 24 Hours: My Active Orders 03/13/21 08:12 Magnesium Sulfate/Water [Magnesium Sulfate in Water 4 GM/100 ML] 4 gm Premix Bag 1 bag IV ONETIME Sodium Chloride 0.9% [Saline Flush] 2.5 ml FLUSH ASDIRECTED PRN Saline Lock Insert [OM.PC] Routine 03/13/21 08:13 Intake and Output [RC] ASDIRECTED 03/13/21 08:30 Potassium Chloride [Klor-Con M20] 40 meq PO BID@0830,1300 - Plan Plan:: 35 yo male admitted for ETOH detox. 1. Alcohol withdrawal syndrome: - Continue on CIWAA protocol with prn ativan. - Continue valium BID. - Continue thiamine and folic acid. 2. Hypokalemia/Hypomagnesemia - Replace K orally today - replace magnesemia with 4 gm IV - Monitor daily 3. Urine retention - Has not voided, bladder feels distended - Bladder scan, straight cath PRN VTE prophylaxis: SCDs and ambulation GI prophylaxis: Protonix CODE STATUS: FULL CODE Dispo: 2-3 days pending improvement.
[2021-03-13] MEDS: Potassium Chloride 20 MEQ Tab.ER PO SCH ×2 (08:30→12:46)
[2021-03-13] MEDS ORDERED: Magnesium Sulfate/Water 4 GM in Premix Bag 1 BAG IV ONE (08:30)
[2021-03-13] MEDS: Folic Acid 50 MG/10 ML MDV SUBCUT SCH (08:30)
[2021-03-13] MEDS: Thiamine 200 MG/2 ML MDV IVPUSH SCH (08:32)
[2021-03-13] MEDS ORDERED: Diazepam 5 MG Tab PO SCH ×2 (09:00→15:30)
[2021-03-13] MEDS ORDERED: Thiamine 100 MG in Sodium Chloride 0.9% 100 ML IV SCH (09:00)
[2021-03-13] MEDS: Pantoprazole 40 MG in Sodium Chloride 0.9% 10 ML IV SCH (11:09)
[2021-03-13] MEDS: Acetaminophen 325 MG Tab PO PRN (14:16)
[2021-03-13] MEDS ORDERED: Ondansetron 4 MG/2 ML SDV IVPUSH PRN (15:21)
[2021-03-13] MEDS: Diazepam 5 MG Tab PO SCH (21:05)
[2021-03-13] MEDS ORDERED: LORazepam 2 MG/ML SDV IVPUSH ONE (21:53)
[2021-03-13] MEDS ORDERED: Haloperidol Lactate 5 MG/ML SDV IM ONE (21:54)
[2021-03-13] MEDS ORDERED: diphenhydrAMINE 50 MG/ML SDV IVPUSH ONE (21:56)
[2021-03-14] MEDS: Sodium Chloride 0.9% 1,000 ML IV SCH ×3 (01:36→19:25)
[2021-03-14] MEDS: Diazepam 5 MG Tab PO SCH ×3 (05:09→21:00)
[2021-03-14 05:35] LABS: BLOOD UREA NITROGEN,BUN 7 mg/dL (7.0-18.0); CARBON DIOXIDE,CO2 27.9 mmol/L (21.0-32.0); CHLORIDE,CL 105 mmol/L (98-107); GLUCOSE RANDOM 93 mg/dL (74-106); POTASSIUM,K 4.2 mmol/L (3.5-5.1); SODIUM,NA 140 mmol/L (136-148)
--- NOTE | 2021-03-14 08:07 | PCM.PN ---
- General Info Date of Service: 03/14/21 Admission Dx/Problem (Free Text): Admission Diagnosis/Problem Admission Diagnosis/Problem Alcohol withdrawal syndrome Subjective Update: Reports feeling improved this morning after increase in Valium. Last dose of ativan last night around 2100. Denies chest pain or SOB. Currently resting comfortably and denies concerns now. Functional Status: Reports: Pain Controlled, Tolerating Diet, Ambulating, Urinating - Review of Systems General: Reports: Fatigue, Malaise HEENT: Reports: No Symptoms. Denies: Headaches, Sore Throat, Visual Changes Pulmonary: Reports: No Symptoms. Denies: Shortness of Breath Cardiovascular: Reports: No Symptoms. Denies: Chest Pain Gastrointestinal: Reports: No Symptoms. Denies: Abdominal Pain, Nausea, Vomiting Genitourinary: Reports: No Symptoms Musculoskeletal: Reports: No Symptoms Skin: Reports: No Symptoms Neurological: Reports: No Symptoms Psychiatric: Reports: No Symptoms - Patient Data Vitals - Most Recent: Last Vital Signs Temp 97.9 F 03/14/21 04:00 Pulse 102 H 03/13/21 01:34 Resp 16 03/14/21 07:00 BP 101/55 L 03/14/21 07:00 Pulse Ox 96 03/14/21 07:00 Weight - Most Recent: 78.608 kg I&O - Last 24 Hours: Intake & Output 03/13/21 03/14/21 03/14/21 22:59 06:59 14:59 Intake Total 820 200 Output Total 860 1402 Balance -40 -1202 Lab Results Last 24 Hours: Laboratory Results - last 24 hr 03/14/21 03/14/21 Range/Units 05:04 05:04 WBC 4.69 (4.0-11.0) K/uL RBC 4.46 L (4.50-5.90) M/uL Hgb 13.6 (13.0-17.0) g/dL Hct 39.2 (38.0-50.0) % MCV 87.9 (80.0-98.0) fL MCH 30.5 (27.0-32.0) pg MCHC 34.7 (31.0-37.0) g/dL RDW Std Deviation 43.0 (28.0-62.0) fl RDW Coeff of Negrita 13 (11.0-15.0) % Plt Count 187 (150-400) K/uL MPV 8.70 (7.40-12.00) fL Neut % (Auto) 49.5 (48.0-80.0) % Lymph % (Auto) 37.3 (16.0-40.0) % [place] % (Auto) 10.2 (0.0-15.0) % Eos % (Auto) 2.6 (0.0-7.0) % Baso % (Auto) 0.4 (0.0-1.5) % Neut # (Auto) 2.3 (1.4-5.7) K/uL Lymph # (Auto) 1.8 (0.6-2.4) K/uL [place] # (Auto) 0.5 (0.0-0.8) K/uL Eos # (Auto) 0.1 (0.0-0.7) K/uL Baso # (Auto) 0.0 (0.0-0.1) K/uL Nucleated RBC % 0.0 /100WBC Nucleated RBCs # 0 K/uL Sodium 140 (136-148) mmol/L Potassium 4.2 (3.5-5.1) mmol/L Chloride 105 (98-107) mmol/L Carbon Dioxide 27.9 (21.0-32.0) mmol/L BUN 7 (7.0-18.0) mg/dL Creatinine 1.0 (0.8-1.3) mg/dL Est Cr Clr Drug Dosing 114.64 mL/min Estimated GFR (MDRD) > 60.0 ml/min Glucose 93 (74-106) mg/dL Calcium 7.8 L (8.5-10.1) mg/dL Phosphorus 3.4 (2.6-4.7) mg/dL Magnesium 1.8 (1.8-2.4) mg/dL Total Bilirubin 1.1 H (0.2-1.0) mg/dL AST 83 H (15-37) IU/L ALT 136 H (14-63) IU/L Alkaline Phosphatase 59 (46-116) U/L Total Protein 6.4 (6.4-8.2) g/dL Albumin 3.3 L (3.4-5.0) g/dL Globulin 3.1 (2.6-4.0) g/dL Albumin/Globulin Ratio 1.1 (0.9-1.6) Med Orders - Current: Current Medications Acetaminophen (Acetaminophen 325 Mg Tab) 650 mg PO Q4H PRN PRN Reason: Pain/Fever Last Admin: 03/13/21 14:16 Dose: 650 mg Documented by: Diazepam (Diazepam 5 Mg Tab) 10 mg PO TID [facility] Last Admin: 03/14/21 05:09 Dose: 10 mg Documented by: Folic Acid (Folic Acid 50 Mg/10 Ml Mdv) 1 mg SUBCUT DAILY [facility] Last Admin: 03/13/21 08:30 Dose: 1 mg Documented by: Sodium Chloride (Normal Saline) 1,000 mls @ 125 mls/hr IV ASDIRECTED [facility] Last Admin: 03/14/21 01:36 Dose: 125 mls/hr Documented by: Pantoprazole Sodium 40 mg/ (Sodium Chloride) 10 mls @ 300 mls/hr IV Q24H [facility] Last Infusion: 03/13/21 21:57 Dose: 300 mls/hr Documented by: Lorazepam (Lorazepam 2 Mg/Ml Sdv) 0 mg IVPUSH Q4H PRN; Protocol PRN Reason: CIWWA Last Admin: 03/13/21 21:47 Dose: 2 mg Documented by: Nicotine (Nicotine 21 Mg/24 Hr Patch) 21 mg TRDERM DAILY [facility] Last Admin: 03/13/21 08:30 Dose: 21 mg Documented by: Ondansetron HCl (Ondansetron 4 Mg/2 Ml Sdv) 4 mg IVPUSH Q4H PRN PRN Reason: Nausea Last Admin: 03/13/21 17:40 Dose: 4 mg Documented by: Sodium Chloride (Sodium Chloride 0.9% 2.5 Ml Syringe) 2.5 ml FLUSH ASDIRECTED PRN PRN Reason: Keep Vein Open Thiamine HCl (Thiamine 200 Mg/2 Ml Mdv) 100 mg IVPUSH DAILY [facility] Last Admin: 03/13/21 08:32 Dose: 100 mg Documented by: Discontinued Medications Diazepam (Diazepam 10 Mg/2 Ml Syringe) 5 mg IVPUSH ONETIME ONE Stop: 03/12/21 23:22 Last Admin: 03/12/21 23:25 Dose: 5 mg Documented by: Diazepam (Diazepam 10 Mg/2 Ml Syringe) Confirm Administered Dose 10 mg .ROUTE .STK-MED ONE Stop: 03/12/21 23:24 Last Admin: 03/13/21 00:22 Dose: Not Given Documented by: Diazepam (Diazepam 10 Mg/2 Ml Syringe) 10 mg IVPUSH ONETIME ONE Stop: 03/12/21 23:46 Last Admin: 03/13/21 00:21 Dose: 10 mg Documented by: Diazepam (Diazepam 5 Mg Tab) 5 mg PO BID [facility] Last Admin: 03/13/21 08:29 Dose: 5 mg Documented by: Diazepam (Diazepam 5 Mg Tab) 5 mg PO TID [facility] Last Admin: 03/13/21 15:29 Dose: 5 mg Documented by: Diphenhydramine HCl (Diphenhydramine 50 Mg/Ml Sdv) 25 mg IVPUSH ONETIME ONE Stop: 03/13/21 21:57 Last Admin: 03/13/21 22:07 Dose: 25 mg Documented by: Folic Acid (Folic Acid 1 Mg Tab) 1 mg PO ONETIME ONE Stop: 03/12/21 21:23 Last Admin: 03/12/21 22:19 Dose: 1 mg Documented by: Haloperidol Lactate (Haloperidol Lactate 5 Mg/Ml Sdv) 5 mg IM ONETIME ONE Stop: 03/13/21 21:55 Last Admin: 03/13/21 22:06 Dose: 5 mg Documented by: Magnesium Sulfate 4 gm/ Premix 100 mls @ 50 mls/hr IV ONETIME ONE Stop: 03/13/21 10:29 Last Admin: 03/13/21 08:31 Dose: 50 mls/hr Documented by: Lorazepam (Lorazepam 2 Mg/Ml Sdv) 4 mg IVPUSH ONETIME ONE Stop: 03/13/21 21:54 Last Admin: 03/13/21 22:06 Dose: 4 mg Documented by: Nicotine (Nicotine 21 Mg/24 Hr Patch) Confirm Administered Dose 21 mg .ROUTE .STK-MED ONE Stop: 03/13/21 01:02 Last Admin: 03/13/21 01:08 Dose: Not Given Documented by: Ondansetron HCl (Ondansetron 4 Mg/2 Ml Sdv) 4 mg IVPUSH ONETIME STA Stop: 03/12/21 21:50 Last Admin: 03/12/21 22:00 Dose: 4 mg Documented by: Potassium Chloride (Potassium Chloride 20 Meq Tab.Er) 40 meq PO BID@0830,1300 [facility] Stop: 03/13/21 13:01 Last Admin: 03/13/21 12:46 Dose: 40 meq Documented by: Sodium Chloride (Sodium Chloride 0.9% 10 Ml Syringe) 10 ml FLUSH ASDIRECTED PRN PRN Reason: Keep Vein Open Sodium Chloride (Sodium Chloride 0.9% 2.5 Ml Syringe) 2.5 ml FLUSH ASDIRECTED PRN PRN Reason: Keep Vein Open Thiamine HCl (Thiamine 100 Mg Tab) 100 mg PO ONETIME ONE Stop: 03/12/21 21:23 Last Admin: 03/12/21 22:19 Dose: 100 mg Documented by: - Exam General: Alert, Oriented, Cooperative, No Acute Distress Lungs: Clear to Auscultation, Normal Respiratory Effort Cardiovascular: Regular Rate, Regular Rhythm GI/Abdominal Exam: Normal Bowel Sounds, Soft, Non-Tender Extremities: Normal Inspection, Normal Range of Motion, Non-Tender, No Pedal Edema Neurological: No New Focal Deficit Psy/Mental Status: Alert, Normal Affect, Anxious, Withdrawal Symptoms - Patient Data Lab Results Last 24 hrs: Laboratory Results - last 24 hr 03/14/21 03/14/21 Range/Units 05:04 05:04 WBC 4.69 (4.0-11.0) K/uL RBC 4.46 L (4.50-5.90) M/uL Hgb 13.6 (13.0-17.0) g/dL Hct 39.2 (38.0-50.0) % MCV 87.9 (80.0-98.0) fL MCH 30.5 (27.0-32.0) pg MCHC 34.7 (31.0-37.0) g/dL RDW Std Deviation 43.0 (28.0-62.0) fl RDW Coeff of Negrita 13 (11.0-15.0) % Plt Count 187 (150-400) K/uL MPV 8.70 (7.40-12.00) fL Neut % (Auto) 49.5 (48.0-80.0) % Lymph % (Auto) 37.3 (16.0-40.0) % [place] % (Auto) 10.2 (0.0-15.0) % Eos % (Auto) 2.6 (0.0-7.0) % Baso % (Auto) 0.4 (0.0-1.5) % Neut # (Auto) 2.3 (1.4-5.7) K/uL Lymph # (Auto) 1.8 (0.6-2.4) K/uL [place] # (Auto) 0.5 (0.0-0.8) K/uL Eos # (Auto) 0.1 (0.0-0.7) K/uL Baso # (Auto) 0.0 (0.0-0.1) K/uL Nucleated RBC % 0.0 /100WBC Nucleated RBCs # 0 K/uL Sodium 140 (136-148) mmol/L Potassium 4.2 (3.5-5.1) mmol/L Chloride 105 (98-107) mmol/L Carbon Dioxide 27.9 (21.0-32.0) mmol/L BUN 7 (7.0-18.0) mg/dL Creatinine 1.0 (0.8-1.3) mg/dL Est Cr Clr Drug Dosing 114.64 mL/min Estimated GFR (MDRD) > 60.0 ml/min Glucose 93 (74-106) mg/dL Calcium 7.8 L (8.5-10.1) mg/dL Phosphorus 3.4 (2.6-4.7) mg/dL Magnesium 1.8 (1.8-2.4) mg/dL Total Bilirubin 1.1 H (0.2-1.0) mg/dL AST 83 H (15-37) IU/L ALT 136 H (14-63) IU/L Alkaline Phosphatase 59 (46-116) U/L Total Protein 6.4 (6.4-8.2) g/dL Albumin 3.3 L (3.4-5.0) g/dL Globulin 3.1 (2.6-4.0) g/dL Albumin/Globulin Ratio 1.1 (0.9-1.6) Result Diagrams: 03/14/21 05:04 03/14/21 05:04 Sepsis Event Note - Evaluation Sepsis Screening Result: No Definite Risk - Focused Exam Vital Signs: Vital Signs Temp Resp BP Pulse Ox 03/14/21 07:00 16 101/55 L 96 03/14/21 06:00 17 127/83 96 03/14/21 05:00 16 117/67 97 03/14/21 04:00 97.9 F 15 117/61 96 03/14/21 03:00 15 123/82 96 03/14/21 02:00 18 108/78 95 03/14/21 01:00 16 119/83 95 03/14/21 00:00 97.9 F 18 127/82 95 03/13/21 23:00 19 120/75 97 03/13/21 22:00 20 143/84 H 97 03/13/21 21:00 22 H 131/81 97 - Problem List & Annotations (1) Alcohol withdrawal SNOMED Code(s): 194257252 Code(s): F10.239 - ALCOHOL DEPENDENCE WITH WITHDRAWAL, UNSPECIFIED Status: Acute Current Visit: Yes (2) Hypokalemia SNOMED Code(s): 85473478 Code(s): E87.6 - HYPOKALEMIA Status: Acute Current Visit: Yes (3) Hypomagnesemia SNOMED Code(s): 289834155 Code(s): E83.42 - HYPOMAGNESEMIA Status: Acute Current Visit: Yes - Problem List Review Problem List Initiated/Reviewed/Updated: Yes - My Orders Last 24 Hours: My Active Orders 03/13/21 08:12 Sodium Chloride 0.9% [Saline Flush] 2.5 ml FLUSH ASDIRECTED PRN Saline Lock Insert [OM.PC] Routine 03/13/21 08:13 Intake and Output [RC] Q12H 03/13/21 08:35 Bladder Scan [RC] ASDIRECTED 03/13/21 09:42 CIWAA Assessment [RC] Q4H 03/13/21 11:00 Pantoprazole [ProTONIX IV] 40 mg Sodium Chloride 0.9% [Normal Saline] 10 ml IV Q24H 03/13/21 15:21 Ondansetron [Zofran] 4 mg IVPUSH Q4H PRN 03/15/21 05:11 CBC WITH AUTO DIFF [HEME] AM COMPREHENSIVE METABOLIC PN,CMP [CHEM] AM MAGNESIUM [CHEM] AM PHOSPHORUS [CHEM] AM 03/16/21 05:11 CBC WITH AUTO DIFF [HEME] AM COMPREHENSIVE METABOLIC PN,CMP [CHEM] AM MAGNESIUM [CHEM] AM PHOSPHORUS [CHEM] AM - Plan Plan:: 35 yo male admitted for ETOH detox. 1. Alcohol withdrawal syndrome: - Continue on CIWAA protocol with prn ativan. - Continue valium increased to 10 mg TID, symptoms of withdrawal improved. - Continue thiamine and folic acid. 2. Hypokalemia/Hypomagnesemia - resolved today, monitor daily labs 3. Urine retention - Voiding well 4. Transaminitis/hyperbilirubinemia - Likely secondary to significant alcohol use. - Monitor daily VTE prophylaxis: SCDs and ambulation GI prophylaxis: Protonix CODE STATUS: FULL CODE Dispo: 2-3 days pending improvement.
[2021-03-14] MEDS: Folic Acid 50 MG/10 ML MDV SUBCUT SCH (09:01)
[2021-03-14] MEDS: Nicotine 21 MG/24 Hr Patch TRDERM SCH (09:02)
[2021-03-14] MEDS: Thiamine 200 MG/2 ML MDV IVPUSH SCH (09:03)
[2021-03-14] MEDS: LORazepam 2 MG/ML SDV IVPUSH PRN ×6 (10:04→20:30)
[2021-03-14] MEDS: Pantoprazole 40 MG in Sodium Chloride 0.9% 10 ML IV SCH (11:04)
[2021-03-14] MEDS ORDERED: Haloperidol Lactate 5 MG/ML SDV IM ONE (20:17)
[2021-03-14] MEDS ORDERED: diphenhydrAMINE 50 MG/ML SDV IVPUSH ONE (20:17)
[2021-03-15] MEDS: Sodium Chloride 0.9% 1,000 ML IV SCH (03:56)
[2021-03-15] MEDS: Diazepam 5 MG Tab PO SCH (05:56)
[2021-03-15] MEDS: LORazepam 2 MG/ML SDV IVPUSH PRN ×7 (06:09→23:17)
[2021-03-15 06:44] LABS: BLOOD UREA NITROGEN,BUN 10 mg/dL (7.0-18.0); CARBON DIOXIDE,CO2 25.7 mmol/L (21.0-32.0); CHLORIDE,CL 106 mmol/L (98-107); GLUCOSE RANDOM 96 mg/dL (74-106); POTASSIUM,K 3.7 mmol/L (3.5-5.1); SODIUM,NA 139 mmol/L (136-148)
--- NOTE | 2021-03-15 07:57 | PCM.PN ---
- General Info Date of Service: 03/15/21 Admission Dx/Problem (Free Text): Admission Diagnosis/Problem Admission Diagnosis/Problem Alcohol withdrawal syndrome Subjective Update: Patient can significantly better today anxiety has decreased. Again he continues to be very eager to go home. He was counseled and educated on the need to taper long-acting benzodiazepines to safely discharge him home. He is wanting work note to return to work and he was explained that if he were to leave AGAINST MEDICAL ADVICE this would not be provided. He denies any chest pain shortness of breath or abdominal pain. He is eating and drinking well. Urinating and having bowel movements. No concerns at this time. Patient up ambulating in room gait appears steady. Functional Status: Reports: Pain Controlled, Tolerating Diet, Ambulating, Urinating - Review of Systems General: Reports: No Symptoms. Denies: Fatigue, Malaise HEENT: Reports: No Symptoms. Denies: Headaches, Sore Throat, Visual Changes Pulmonary: Reports: No Symptoms. Denies: Shortness of Breath Cardiovascular: Reports: No Symptoms. Denies: Chest Pain Gastrointestinal: Reports: No Symptoms. Denies: Abdominal Pain, Nausea, Vomiting Genitourinary: Reports: No Symptoms. Denies: Dysuria, Frequency Musculoskeletal: Reports: No Symptoms Skin: Reports: No Symptoms Neurological: Reports: No Symptoms Psychiatric: Reports: Anxiety - Patient Data Vitals - Most Recent: Last Vital Signs Temp 97.6 F 03/15/21 06:00 Pulse 102 H 03/13/21 01:34 Resp 14 03/15/21 06:00 BP 118/82 03/15/21 07:00 Pulse Ox 98 03/15/21 06:00 Weight - Most Recent: 76.113 kg I&O - Last 24 Hours: Intake & Output 03/14/21 03/15/21 03/15/21 22:59 06:59 14:59 Intake Total 1200 2186 Output Total 2800 1450 Balance -1600 736 Lab Results Last 24 Hours: Laboratory Results - last 24 hr 03/15/21 03/15/21 Range/Units 06:00 06:00 WBC 5.40 (4.0-11.0) K/uL RBC 4.52 (4.50-5.90) M/uL Hgb 13.6 (13.0-17.0) g/dL Hct 39.9 (38.0-50.0) % MCV 88.3 (80.0-98.0) fL MCH 30.1 (27.0-32.0) pg MCHC 34.1 (31.0-37.0) g/dL RDW Std Deviation 43.7 (28.0-62.0) fl RDW Coeff of Negrita 14 (11.0-15.0) % Plt Count 210 (150-400) K/uL MPV 9.00 (7.40-12.00) fL Neut % (Auto) 49.6 (48.0-80.0) % Lymph % (Auto) 37.8 (16.0-40.0) % [place] % (Auto) 9.6 (0.0-15.0) % Eos % (Auto) 2.6 (0.0-7.0) % Baso % (Auto) 0.4 (0.0-1.5) % Neut # (Auto) 2.7 (1.4-5.7) K/uL Lymph # (Auto) 2.0 (0.6-2.4) K/uL [place] # (Auto) 0.5 (0.0-0.8) K/uL Eos # (Auto) 0.1 (0.0-0.7) K/uL Baso # (Auto) 0.0 (0.0-0.1) K/uL Nucleated RBC % 0.0 /100WBC Nucleated RBCs # 0 K/uL Sodium 139 (136-148) mmol/L Potassium 3.7 (3.5-5.1) mmol/L Chloride 106 (98-107) mmol/L Carbon Dioxide 25.7 (21.0-32.0) mmol/L BUN 10 (7.0-18.0) mg/dL Creatinine 0.9 (0.8-1.3) mg/dL Est Cr Clr Drug Dosing 123.33 mL/min Estimated GFR (MDRD) > 60.0 ml/min Glucose 96 (74-106) mg/dL Calcium 8.2 L (8.5-10.1) mg/dL Phosphorus 4.1 (2.6-4.7) mg/dL Magnesium 1.7 L (1.8-2.4) mg/dL Total Bilirubin 0.9 (0.2-1.0) mg/dL AST 122 H (15-37) IU/L ALT 163 H (14-63) IU/L Alkaline Phosphatase 56 (46-116) U/L Total Protein 6.5 (6.4-8.2) g/dL Albumin 3.3 L (3.4-5.0) g/dL Globulin 3.2 (2.6-4.0) g/dL Albumin/Globulin Ratio 1.0 (0.9-1.6) Med Orders - Current: Current Medications Acetaminophen (Acetaminophen 325 Mg Tab) 650 mg PO Q4H PRN PRN Reason: Pain/Fever Last Admin: 03/13/21 14:16 Dose: 650 mg Documented by: Diazepam (Diazepam 5 Mg Tab) 10 mg PO TID [facility] Last Admin: 03/15/21 05:56 Dose: 10 mg Documented by: Folic Acid (Folic Acid 50 Mg/10 Ml Mdv) 1 mg SUBCUT DAILY [facility] Last Admin: 03/14/21 09:01 Dose: 1 mg Documented by: Sodium Chloride (Normal Saline) 1,000 mls @ 125 mls/hr IV ASDIRECTED [facility] Last Admin: 03/15/21 03:56 Dose: 125 mls/hr Documented by: Pantoprazole Sodium 40 mg/ (Sodium Chloride) 10 mls @ 300 mls/hr IV Q24H [facility] Last Admin: 03/14/21 11:04 Dose: 300 mls/hr Documented by: Magnesium Sulfate 2 gm/ Premix 50 mls @ 25 mls/hr IV ONETIME ONE Stop: 03/15/21 09:55 Lorazepam (Lorazepam 2 Mg/Ml Sdv) 0 mg IVPUSH Q4H PRN; Protocol PRN Reason: CIWWA Last Admin: 03/15/21 06:09 Dose: 1 mg Documented by: Nicotine (Nicotine 21 Mg/24 Hr Patch) 21 mg TRDERM DAILY [facility] Last Admin: 03/14/21 09:02 Dose: 21 mg Documented by: Ondansetron HCl (Ondansetron 4 Mg/2 Ml Sdv) 4 mg IVPUSH Q4H PRN PRN Reason: Nausea Last Admin: 03/13/21 17:40 Dose: 4 mg Documented by: Sodium Chloride (Sodium Chloride 0.9% 2.5 Ml Syringe) 2.5 ml FLUSH ASDIRECTED PRN PRN Reason: Keep Vein Open Thiamine HCl (Thiamine 200 Mg/2 Ml Mdv) 100 mg IVPUSH DAILY [facility] Last Admin: 03/14/21 09:03 Dose: 100 mg Documented by: Discontinued Medications Diazepam (Diazepam 10 Mg/2 Ml Syringe) 5 mg IVPUSH ONETIME ONE Stop: 03/12/21 23:22 Last Admin: 03/12/21 23:25 Dose: 5 mg Documented by: Diazepam (Diazepam 10 Mg/2 Ml Syringe) Confirm Administered Dose 10 mg .ROUTE .STK-MED ONE Stop: 03/12/21 23:24 Last Admin: 03/13/21 00:22 Dose: Not Given Documented by: Diazepam (Diazepam 10 Mg/2 Ml Syringe) 10 mg IVPUSH ONETIME ONE Stop: 03/12/21 23:46 Last Admin: 03/13/21 00:21 Dose: 10 mg Documented by: Diazepam (Diazepam 5 Mg Tab) 5 mg PO BID [facility] Last Admin: 03/13/21 08:29 Dose: 5 mg Documented by: Diazepam (Diazepam 5 Mg Tab) 5 mg PO TID [facility] Last Admin: 03/13/21 15:29 Dose: 5 mg Documented by: Diphenhydramine HCl (Diphenhydramine 50 Mg/Ml Sdv) 25 mg IVPUSH ONETIME ONE Stop: 03/13/21 21:57 Last Admin: 03/13/21 22:07 Dose: 25 mg Documented by: Diphenhydramine HCl (Diphenhydramine 50 Mg/Ml Sdv) 25 mg IVPUSH ONETIME ONE Stop: 03/14/21 20:18 Last Admin: 03/14/21 20:29 Dose: 25 mg Documented by: Folic Acid (Folic Acid 1 Mg Tab) 1 mg PO ONETIME ONE Stop: 03/12/21 21:23 Last Admin: 03/12/21 22:19 Dose: 1 mg Documented by: Haloperidol Lactate (Haloperidol Lactate 5 Mg/Ml Sdv) 5 mg IM ONETIME ONE Stop: 03/13/21 21:55 Last Admin: 03/13/21 22:06 Dose: 5 mg Documented by: Haloperidol Lactate (Haloperidol Lactate 5 Mg/Ml Sdv) 5 mg IM ONETIME ONE Stop: 03/14/21 20:18 Last Admin: 03/14/21 20:29 Dose: 5 mg Documented by: Magnesium Sulfate 4 gm/ Premix 100 mls @ 50 mls/hr IV ONETIME ONE Stop: 03/13/21 10:29 Last Admin: 03/13/21 08:31 Dose: 50 mls/hr Documented by: Lorazepam (Lorazepam 2 Mg/Ml Sdv) 4 mg IVPUSH ONETIME ONE Stop: 03/13/21 21:54 Last Admin: 03/13/21 22:06 Dose: 4 mg Documented by: Nicotine (Nicotine 21 Mg/24 Hr Patch) Confirm Administered Dose 21 mg .ROUTE .STK-MED ONE Stop: 03/13/21 01:02 Last Admin: 03/13/21 01:08 Dose: Not Given Documented by: Ondansetron HCl (Ondansetron 4 Mg/2 Ml Sdv) 4 mg IVPUSH ONETIME STA Stop: 03/12/21 21:50 Last Admin: 03/12/21 22:00 Dose: 4 mg Documented by: Potassium Chloride (Potassium Chloride 20 Meq Tab.Er) 40 meq PO BID@0830,1300 [facility] Stop: 03/13/21 13:01 Last Admin: 03/13/21 12:46 Dose: 40 meq Documented by: Sodium Chloride (Sodium Chloride 0.9% 10 Ml Syringe) 10 ml FLUSH ASDIRECTED PRN PRN Reason: Keep Vein Open Sodium Chloride (Sodium Chloride 0.9% 2.5 Ml Syringe) 2.5 ml FLUSH ASDIRECTED PRN PRN Reason: Keep Vein Open Thiamine HCl (Thiamine 100 Mg Tab) 100 mg PO ONETIME ONE Stop: 03/12/21 21:23 Last Admin: 03/12/21 22:19 Dose: 100 mg Documented by: - Exam Quality Assessment: DVT Prophylaxis. No: Supplemental Oxygen General: Alert, Oriented, Cooperative HEENT: Pupils Equal, Pupils Reactive Lungs: Clear to Auscultation, Normal Respiratory Effort Cardiovascular: Regular Rate, Regular Rhythm GI/Abdominal Exam: Normal Bowel Sounds, Soft, Non-Tender Extremities: Normal Inspection, Normal Range of Motion, Non-Tender, No Pedal Edema Neurological: No New Focal Deficit Psy/Mental Status: Anxious, Withdrawal Symptoms - Patient Data Lab Results Last 24 hrs: Laboratory Results - last 24 hr 03/15/21 03/15/21 Range/Units 06:00 06:00 WBC 5.40 (4.0-11.0) K/uL RBC 4.52 (4.50-5.90) M/uL Hgb 13.6 (13.0-17.0) g/dL Hct 39.9 (38.0-50.0) % MCV 88.3 (80.0-98.0) fL MCH 30.1 (27.0-32.0) pg MCHC 34.1 (31.0-37.0) g/dL RDW Std Deviation 43.7 (28.0-62.0) fl RDW Coeff of Negrita 14 (11.0-15.0) % Plt Count 210 (150-400) K/uL MPV 9.00 (7.40-12.00) fL Neut % (Auto) 49.6 (48.0-80.0) % Lymph % (Auto) 37.8 (16.0-40.0) % [place] % (Auto) 9.6 (0.0-15.0) % Eos % (Auto) 2.6 (0.0-7.0) % Baso % (Auto) 0.4 (0.0-1.5) % Neut # (Auto) 2.7 (1.4-5.7) K/uL Lymph # (Auto) 2.0 (0.6-2.4) K/uL [place] # (Auto) 0.5 (0.0-0.8) K/uL Eos # (Auto) 0.1 (0.0-0.7) K/uL Baso # (Auto) 0.0 (0.0-0.1) K/uL Nucleated RBC % 0.0 /100WBC Nucleated RBCs # 0 K/uL Sodium 139 (136-148) mmol/L Potassium 3.7 (3.5-5.1) mmol/L Chloride 106 (98-107) mmol/L Carbon Dioxide 25.7 (21.0-32.0) mmol/L BUN 10 (7.0-18.0) mg/dL Creatinine 0.9 (0.8-1.3) mg/dL Est Cr Clr Drug Dosing 123.33 mL/min Estimated GFR (MDRD) > 60.0 ml/min Glucose 96 (74-106) mg/dL Calcium 8.2 L (8.5-10.1) mg/dL Phosphorus 4.1 (2.6-4.7) mg/dL Magnesium 1.7 L (1.8-2.4) mg/dL Total Bilirubin 0.9 (0.2-1.0) mg/dL AST 122 H (15-37) IU/L ALT 163 H (14-63) IU/L Alkaline Phosphatase 56 (46-116) U/L Total Protein 6.5 (6.4-8.2) g/dL Albumin 3.3 L (3.4-5.0) g/dL Globulin 3.2 (2.6-4.0) g/dL Albumin/Globulin Ratio 1.0 (0.9-1.6) Result Diagrams: 03/15/21 06:00 03/15/21 06:00 Sepsis Event Note - Evaluation Sepsis Screening Result: No Definite Risk - Focused Exam Vital Signs: Vital Signs Temp Resp BP Pulse Ox 03/15/21 07:00 118/82 03/15/21 06:00 97.6 F 14 138/57 L 98 03/15/21 05:00 16 142/84 H 96 03/15/21 04:00 15 121/64 100 03/15/21 03:00 15 123/72 96 03/15/21 02:00 15 129/71 95 03/15/21 01:00 14 128/72 95 03/15/21 00:00 97.5 F 16 123/63 97 03/14/21 23:00 15 116/67 03/14/21 22:00 17 147/83 H 98 03/14/21 21:00 15 132/85 99 03/14/21 20:00 97.9 F 17 128/74 97 - Problem List & Annotations (1) Alcohol withdrawal SNOMED Code(s): 792434924 Code(s): F10.239 - ALCOHOL DEPENDENCE WITH WITHDRAWAL, UNSPECIFIED Status: Acute Current Visit: Yes (2) Hypokalemia SNOMED Code(s): 17349423 Code(s): E87.6 - HYPOKALEMIA Status: Acute Current Visit: Yes (3) Hypomagnesemia SNOMED Code(s): 886127060 Code(s): E83.42 - HYPOMAGNESEMIA Status: Acute Current Visit: Yes - Problem List Review Problem List Initiated/Reviewed/Updated: Yes - My Orders Last 24 Hours: My Active Orders 03/15/21 07:56 Magnesium Sulfate/Water [Magnesium Sulfate in Water 2 GM/50 ML] 2 gm Premix Bag 1 bag IV ONETIME 03/16/21 05:11 CBC WITH AUTO DIFF [HEME] AM COMPREHENSIVE METABOLIC PN,CMP [CHEM] AM MAGNESIUM [CHEM] AM PHOSPHORUS [CHEM] AM - Plan Plan:: 35 yo male admitted for ETOH detox. 1. Alcohol withdrawal syndrome: - Continue on CIWAA protocol with prn ativan. - Continue valium increased to 10 mg twice daily, then 5 mg in the morning. - Continue thiamine and folic acid. 2. Hypokalemia/Hypomagnesemia -Supplement with 2 g magnesium today 3. Transaminitis/hyperbilirubinemia - Likely secondary to significant alcohol use. - Monitor daily, improving VTE prophylaxis: SCDs and ambulation GI prophylaxis: Protonix CODE STATUS: FULL CODE Dispo: 2-3 days pending improvement.
[2021-03-15] MEDS ORDERED: Magnesium Sulfate/Water 2 GM in Premix Bag 1 BAG IV ONE (08:00)
[2021-03-15] MEDS: Folic Acid 50 MG/10 ML MDV SUBCUT SCH (09:07)
[2021-03-15] MEDS: Thiamine 200 MG/2 ML MDV IVPUSH SCH (09:09)
[2021-03-15] MEDS: Nicotine 21 MG/24 Hr Patch TRDERM SCH (09:12)
[2021-03-15] MEDS: Pantoprazole 40 MG in Sodium Chloride 0.9% 10 ML IV SCH (11:38)
[2021-03-15] MEDS ORDERED: Diazepam 5 MG Tab PO SCH (21:00)
[2021-03-16] MEDS: LORazepam 2 MG/ML SDV IVPUSH PRN ×7 (01:24→22:19)
[2021-03-16] MEDS ORDERED: diphenhydrAMINE 50 MG/ML SDV IVPUSH ONE (02:14)
[2021-03-16] MEDS ORDERED: Haloperidol Lactate 5 MG/ML SDV IM ONE (03:44)
[2021-03-16 07:31] LABS: BLOOD UREA NITROGEN,BUN 12 mg/dL (7.0-18.0); CARBON DIOXIDE,CO2 26.6 mmol/L (21.0-32.0); CHLORIDE,CL 104 mmol/L (98-107); GLUCOSE RANDOM 97 mg/dL (74-106); POTASSIUM,K 3.7 mmol/L (3.5-5.1); SODIUM,NA 139 mmol/L (136-148)
[2021-03-16] MEDS: Diazepam 5 MG Tab PO SCH (09:00)
[2021-03-16] MEDS: Folic Acid 50 MG/10 ML MDV SUBCUT SCH (09:00)
--- NOTE | 2021-03-16 09:00 | PCM.PN ---
- General Info Date of Service: 03/16/21 Admission Dx/Problem (Free Text): Admission Diagnosis/Problem Admission Diagnosis/Problem Alcohol withdrawal syndrome Subjective Update: COntinues to be sleepy this morning, reports withdrawal symptoms are improved and "feels the best he's ever been". Denies chest pain or SOB. NO other concerns. Functional Status: Reports: Pain Controlled, Tolerating Diet, Ambulating, Urinating - Review of Systems General: Reports: No Symptoms. Denies: Fever, Weakness, Fatigue HEENT: Reports: No Symptoms. Denies: Headaches, Sore Throat, Visual Changes Pulmonary: Reports: No Symptoms. Denies: Shortness of Breath Cardiovascular: Reports: No Symptoms. Denies: Chest Pain Gastrointestinal: Reports: No Symptoms. Denies: Abdominal Pain, Nausea, Vomiting Genitourinary: Reports: No Symptoms. Denies: Dysuria, Frequency Musculoskeletal: Reports: No Symptoms Skin: Reports: No Symptoms Neurological: Reports: No Symptoms Psychiatric: Reports: No Symptoms - Patient Data Vitals - Most Recent: Last Vital Signs Temp 97.5 F 03/16/21 04:51 Pulse 78 03/16/21 04:51 Resp 17 03/16/21 04:51 BP 132/87 03/16/21 04:51 Pulse Ox 99 03/16/21 04:51 Weight - Most Recent: 76.113 kg I&O - Last 24 Hours: Intake & Output 03/15/21 03/16/21 03/16/21 22:59 06:59 14:59 Intake Total 800 Balance 800 Lab Results Last 24 Hours: Laboratory Results - last 24 hr 03/16/21 03/16/21 Range/Units 06:24 06:24 WBC 7.23 (4.0-11.0) K/uL RBC 4.66 (4.50-5.90) M/uL Hgb 14.1 (13.0-17.0) g/dL Hct 40.8 (38.0-50.0) % MCV 87.6 (80.0-98.0) fL MCH 30.3 (27.0-32.0) pg MCHC 34.6 (31.0-37.0) g/dL RDW Std Deviation 42.5 (28.0-62.0) fl RDW Coeff of Negrita 13 (11.0-15.0) % Plt Count 229 (150-400) K/uL MPV 9.40 (7.40-12.00) fL Neut % (Auto) 59.1 (48.0-80.0) % Lymph % (Auto) 30.7 (16.0-40.0) % [place] % (Auto) 8.7 (0.0-15.0) % Eos % (Auto) 1.2 (0.0-7.0) % Baso % (Auto) 0.3 (0.0-1.5) % Neut # (Auto) 4.3 (1.4-5.7) K/uL Lymph # (Auto) 2.2 (0.6-2.4) K/uL [place] # (Auto) 0.6 (0.0-0.8) K/uL Eos # (Auto) 0.1 (0.0-0.7) K/uL Baso # (Auto) 0.0 (0.0-0.1) K/uL Nucleated RBC % 0.0 /100WBC Nucleated RBCs # 0 K/uL Sodium 139 (136-148) mmol/L Potassium 3.7 (3.5-5.1) mmol/L Chloride 104 (98-107) mmol/L Carbon Dioxide 26.6 (21.0-32.0) mmol/L BUN 12 (7.0-18.0) mg/dL Creatinine 0.9 (0.8-1.3) mg/dL Est Cr Clr Drug Dosing 123.33 mL/min Estimated GFR (MDRD) > 60.0 ml/min Glucose 97 (74-106) mg/dL Calcium 8.5 (8.5-10.1) mg/dL Phosphorus 5.4 H (2.6-4.7) mg/dL Magnesium 2.0 (1.8-2.4) mg/dL Total Bilirubin 0.6 (0.2-1.0) mg/dL AST 150 H (15-37) IU/L ALT 213 H (14-63) IU/L Alkaline Phosphatase 63 (46-116) U/L Total Protein 7.2 (6.4-8.2) g/dL Albumin 3.8 (3.4-5.0) g/dL Globulin 3.4 (2.6-4.0) g/dL Albumin/Globulin Ratio 1.1 (0.9-1.6) Med Orders - Current: Current Medications Acetaminophen (Acetaminophen 325 Mg Tab) 650 mg PO Q4H PRN PRN Reason: Pain/Fever Last Admin: 03/13/21 14:16 Dose: 650 mg Documented by: Diazepam (Diazepam 5 Mg Tab) 5 mg PO DAILY [facility] Folic Acid (Folic Acid 50 Mg/10 Ml Mdv) 1 mg SUBCUT DAILY [facility] Last Admin: 03/15/21 09:07 Dose: 1 mg Documented by: Pantoprazole Sodium 40 mg/ (Sodium Chloride) 10 mls @ 300 mls/hr IV Q24H [facility] Last Admin: 03/15/21 11:38 Dose: 300 mls/hr Documented by: Lorazepam (Lorazepam 2 Mg/Ml Sdv) 0 mg IVPUSH Q4H PRN; Protocol PRN Reason: CIWWA Last Admin: 03/16/21 04:01 Dose: 1 mg Documented by: Nicotine (Nicotine 21 Mg/24 Hr Patch) 21 mg TRDERM DAILY [facility] Last Admin: 03/15/21 09:12 Dose: 21 mg Documented by: Ondansetron HCl (Ondansetron 4 Mg/2 Ml Sdv) 4 mg IVPUSH Q4H PRN PRN Reason: Nausea Last Admin: 03/13/21 17:40 Dose: 4 mg Documented by: Sodium Chloride (Sodium Chloride 0.9% 2.5 Ml Syringe) 2.5 ml FLUSH ASDIRECTED PRN PRN Reason: Keep Vein Open Thiamine HCl (Thiamine 200 Mg/2 Ml Mdv) 100 mg IVPUSH DAILY [facility] Last Admin: 03/15/21 09:09 Dose: 100 mg Documented by: Discontinued Medications Diazepam (Diazepam 10 Mg/2 Ml Syringe) 5 mg IVPUSH ONETIME ONE Stop: 03/12/21 23:22 Last Admin: 03/12/21 23:25 Dose: 5 mg Documented by: Diazepam (Diazepam 10 Mg/2 Ml Syringe) Confirm Administered Dose 10 mg .ROUTE .STK-MED ONE Stop: 03/12/21 23:24 Last Admin: 03/13/21 00:22 Dose: Not Given Documented by: Diazepam (Diazepam 10 Mg/2 Ml Syringe) 10 mg IVPUSH ONETIME ONE Stop: 03/12/21 23:46 Last Admin: 03/13/21 00:21 Dose: 10 mg Documented by: Diazepam (Diazepam 5 Mg Tab) 5 mg PO BID [facility] Last Admin: 03/13/21 08:29 Dose: 5 mg Documented by: Diazepam (Diazepam 5 Mg Tab) 5 mg PO TID [facility] Last Admin: 03/13/21 15:29 Dose: 5 mg Documented by: Diazepam (Diazepam 5 Mg Tab) 10 mg PO TID [facility] Last Admin: 03/15/21 05:56 Dose: 10 mg Documented by: Diazepam (Diazepam 5 Mg Tab) 10 mg PO BID [facility] Stop: 03/15/21 22:00 Last Admin: 03/15/21 20:29 Dose: 10 mg Documented by: Diphenhydramine HCl (Diphenhydramine 50 Mg/Ml Sdv) 25 mg IVPUSH ONETIME ONE Stop: 03/13/21 21:57 Last Admin: 03/13/21 22:07 Dose: 25 mg Documented by: Diphenhydramine HCl (Diphenhydramine 50 Mg/Ml Sdv) 25 mg IVPUSH ONETIME ONE Stop: 03/14/21 20:18 Last Admin: 03/14/21 20:29 Dose: 25 mg Documented by: Diphenhydramine HCl (Diphenhydramine 50 Mg/Ml Sdv) 25 mg IVPUSH ONETIME ONE Stop: 03/16/21 02:15 Last Admin: 03/16/21 02:23 Dose: 25 mg Documented by: Folic Acid (Folic Acid 1 Mg Tab) 1 mg PO ONETIME ONE Stop: 03/12/21 21:23 Last Admin: 03/12/21 22:19 Dose: 1 mg Documented by: Haloperidol Lactate (Haloperidol Lactate 5 Mg/Ml Sdv) 5 mg IM ONETIME ONE Stop: 03/13/21 21:55 Last Admin: 03/13/21 22:06 Dose: 5 mg Documented by: Haloperidol Lactate (Haloperidol Lactate 5 Mg/Ml Sdv) 5 mg IM ONETIME ONE Stop: 03/14/21 20:18 Last Admin: 03/14/21 20:29 Dose: 5 mg Documented by: Haloperidol Lactate (Haloperidol Lactate 5 Mg/Ml Sdv) 2 mg IM ONETIME ONE Stop: 03/16/21 03:45 Last Admin: 03/16/21 04:04 Dose: 2 mg Documented by: Sodium Chloride (Normal Saline) 1,000 mls @ 125 mls/hr IV ASDIRECTED [facility] Stop: 03/16/21 00:56 Last Admin: 03/15/21 03:56 Dose: 125 mls/hr Documented by: Magnesium Sulfate 4 gm/ Premix 100 mls @ 50 mls/hr IV ONETIME ONE Stop: 03/13/21 10:29 Last Admin: 03/13/21 08:31 Dose: 50 mls/hr Documented by: Magnesium Sulfate 2 gm/ Premix 50 mls @ 25 mls/hr IV ONETIME ONE Stop: 03/15/21 09:59 Last Admin: 03/15/21 09:07 Dose: 25 mls/hr Documented by: Lorazepam (Lorazepam 2 Mg/Ml Sdv) 4 mg IVPUSH ONETIME ONE Stop: 03/13/21 21:54 Last Admin: 03/13/21 22:06 Dose: 4 mg Documented by: Nicotine (Nicotine 21 Mg/24 Hr Patch) Confirm Administered Dose 21 mg .ROUTE .STK-MED ONE Stop: 03/13/21 01:02 Last Admin: 03/13/21 01:08 Dose: Not Given Documented by: Ondansetron HCl (Ondansetron 4 Mg/2 Ml Sdv) 4 mg IVPUSH ONETIME STA Stop: 03/12/21 21:50 Last Admin: 03/12/21 22:00 Dose: 4 mg Documented by: Potassium Chloride (Potassium Chloride 20 Meq Tab.Er) 40 meq PO BID@0830,1300 [facility] Stop: 03/13/21 13:01 Last Admin: 03/13/21 12:46 Dose: 40 meq Documented by: Sodium Chloride (Sodium Chloride 0.9% 10 Ml Syringe) 10 ml FLUSH ASDIRECTED PRN PRN Reason: Keep Vein Open Sodium Chloride (Sodium Chloride 0.9% 2.5 Ml Syringe) 2.5 ml FLUSH ASDIRECTED PRN PRN Reason: Keep Vein Open Thiamine HCl (Thiamine 100 Mg Tab) 100 mg PO ONETIME ONE Stop: 03/12/21 21:23 Last Admin: 03/12/21 22:19 Dose: 100 mg Documented by: - Exam Quality Assessment: DVT Prophylaxis. No: Supplemental Oxygen General: Alert, Oriented, Cooperative, No Acute Distress Lungs: Clear to Auscultation, Normal Respiratory Effort Cardiovascular: Regular Rate, Regular Rhythm GI/Abdominal Exam: Normal Bowel Sounds, Soft, Non-Tender Extremities: Normal Inspection, Normal Range of Motion, Non-Tender, No Pedal Edema Psy/Mental Status: Alert, Normal Affect, Normal Mood, Withdrawal Symptoms (drowsy, alert) - Patient Data Lab Results Last 24 hrs: Laboratory Results - last 24 hr 03/16/21 03/16/21 Range/Units 06:24 06:24 WBC 7.23 (4.0-11.0) K/uL RBC 4.66 (4.50-5.90) M/uL Hgb 14.1 (13.0-17.0) g/dL Hct 40.8 (38.0-50.0) % MCV 87.6 (80.0-98.0) fL MCH 30.3 (27.0-32.0) pg MCHC 34.6 (31.0-37.0) g/dL RDW Std Deviation 42.5 (28.0-62.0) fl RDW Coeff of Negrita 13 (11.0-15.0) % Plt Count 229 (150-400) K/uL MPV 9.40 (7.40-12.00) fL Neut % (Auto) 59.1 (48.0-80.0) % Lymph % (Auto) 30.7 (16.0-40.0) % [place] % (Auto) 8.7 (0.0-15.0) % Eos % (Auto) 1.2 (0.0-7.0) % Baso % (Auto) 0.3 (0.0-1.5) % Neut # (Auto) 4.3 (1.4-5.7) K/uL Lymph # (Auto) 2.2 (0.6-2.4) K/uL [place] # (Auto) 0.6 (0.0-0.8) K/uL Eos # (Auto) 0.1 (0.0-0.7) K/uL Baso # (Auto) 0.0 (0.0-0.1) K/uL Nucleated RBC % 0.0 /100WBC Nucleated RBCs # 0 K/uL Sodium 139 (136-148) mmol/L Potassium 3.7 (3.5-5.1) mmol/L Chloride 104 (98-107) mmol/L Carbon Dioxide 26.6 (21.0-32.0) mmol/L BUN 12 (7.0-18.0) mg/dL Creatinine 0.9 (0.8-1.3) mg/dL Est Cr Clr Drug Dosing 123.33 mL/min Estimated GFR (MDRD) > 60.0 ml/min Glucose 97 (74-106) mg/dL Calcium 8.5 (8.5-10.1) mg/dL Phosphorus 5.4 H (2.6-4.7) mg/dL Magnesium 2.0 (1.8-2.4) mg/dL Total Bilirubin 0.6 (0.2-1.0) mg/dL AST 150 H (15-37) IU/L ALT 213 H (14-63) IU/L Alkaline Phosphatase 63 (46-116) U/L Total Protein 7.2 (6.4-8.2) g/dL Albumin 3.8 (3.4-5.0) g/dL Globulin 3.4 (2.6-4.0) g/dL Albumin/Globulin Ratio 1.1 (0.9-1.6) Result Diagrams: 03/16/21 06:24 03/16/21 06:24 Sepsis Event Note - Evaluation Sepsis Screening Result: No Definite Risk - Focused Exam Vital Signs: Vital Signs Temp Pulse Resp BP Pulse Ox 03/16/21 04:51 97.5 F 78 17 132/87 99 03/16/21 00:42 97.7 F 71 18 129/75 99 - Problem List & Annotations (1) Alcohol withdrawal SNOMED Code(s): 446006868 Code(s): F10.239 - ALCOHOL DEPENDENCE WITH WITHDRAWAL, UNSPECIFIED Status: Acute Current Visit: Yes (2) Hypokalemia SNOMED Code(s): 00070645 Code(s): E87.6 - HYPOKALEMIA Status: Acute Current Visit: Yes (3) Hypomagnesemia SNOMED Code(s): 989244755 Code(s): E83.42 - HYPOMAGNESEMIA Status: Acute Current Visit: Yes - Problem List Review Problem List Initiated/Reviewed/Updated: Yes - My Orders Last 24 Hours: My Active Orders 03/15/21 11:58 Transfer Patient (Change bed) [ADT] Routine 03/16/21 09:00 diazePAM [Valium.] 5 mg PO DAILY - Plan Plan:: 35 yo male admitted for ETOH detox. 1. Alcohol withdrawal syndrome: - Continue on CIWAA protocol with prn ativan. - Continue valium 5 mg daily - Continue thiamine and folic acid. - Received Haldol and Bendryl for anxiety and sleep last night -since last evening received 15 mg of Valium and 10 mg of Ativan with 5 mg of Haldol this was explained to patient as he is not currently medically stable for discharge in regards to alcohol detox. Patient had appointment today with [facility] to set up outpatient rehab but he was counseled that they would not allow him into rehab if he was not acutely detox and showing signs of alcohol detox. He is currently okay with staying but at times has been threatening to leave AGAINST MEDICAL ADVICE. He can was counseled that he would not receive any type of discharge clearance for return to work if he were to leave AGAINST MEDICAL ADVICE. 2. Hypokalemia/Hypomagnesemia -resolved today, -continue to monitor. 3. Transaminitis/hyperbilirubinemia - Likely secondary to significant alcohol use. - Monitor daily, improving VTE prophylaxis: SCDs and ambulation GI prophylaxis: Protonix CODE STATUS: FULL CODE Dispo: 2-3 days pending improvement.
[2021-03-16] MEDS: Thiamine 200 MG/2 ML MDV IVPUSH SCH (09:03)
[2021-03-16] MEDS: Nicotine 21 MG/24 Hr Patch TRDERM SCH (09:03)
[2021-03-16] MEDS: Pantoprazole 40 MG in Sodium Chloride 0.9% 10 ML IV SCH (11:45)
[2021-03-16] MEDS: Acetaminophen 325 MG Tab PO PRN ×2 (17:07→22:18)
[2021-03-16] MEDS ORDERED: Diazepam 2 MG Tab PO SCH (21:00)
[2021-03-16] MEDS ORDERED: Melatonin 3 MG Tab PO STA (22:55)
[2021-03-17] MEDS: LORazepam 2 MG/ML SDV IVPUSH PRN ×2 (01:31→04:38)
[2021-03-17] MEDS: Acetaminophen 325 MG Tab PO PRN (04:48)
[2021-03-17] MEDS: Folic Acid 50 MG/10 ML MDV SUBCUT SCH (08:40)
[2021-03-17 08:41] LABS: BLOOD UREA NITROGEN,BUN 15 mg/dL (7.0-18.0); CARBON DIOXIDE,CO2 28.8 mmol/L (21.0-32.0); CHLORIDE,CL 101 mmol/L (98-107); GLUCOSE RANDOM 109 mg/dL (74-106); POTASSIUM,K 4.1 mmol/L (3.5-5.1); SODIUM,NA 138 mmol/L (136-148)
[2021-03-17] MEDS: Thiamine 200 MG/2 ML MDV IVPUSH SCH (08:43)
[2021-03-17] MEDS: Nicotine 21 MG/24 Hr Patch TRDERM SCH (08:44)
[2021-03-17] MEDS: Diazepam 5 MG Tab PO SCH (08:44)
--- NOTE | 2021-03-17 10:52 | PCM.DCSUM1 ---
Discharge Summary - Hospital Course Free Text/Narrative:: 35-year-old male presented to the ED on 03-13-21, due to concerns of alcohol withdrawal. Patient was admitted for alcohol abuse with withdrawal. Patient states he drinks up to 1 L of vodka daily. Patient reports insomnia, anxiety tremors and shakiness while not drinking. Patient states he has been drinking intermittently for the past 5 years. Per documentation patient denied any history of medical problems, denied history of illicit drug use. Patient denied fever, chills, headaches, chest pain, shortness of breath on admission. Patient was treated with Ativan per CIWA protocol, Valium daily, thiamine and folic acid supplementation. Electrolytes repleted as needed. Patient had episodes during his admission where he stated he would like to leave AGAINST MEDICAL ADVICE but ultimately decided to stay. At discharge patient states that he felt fine. Denied fever, chills, nausea, vomiting, abdominal pain, headaches, anxiety. Denied tremors or shakiness. Patient states he will follow up with [facility] for rehab on 03-19-21. There was concern at discharge if patient would consume alcohol prior to rehab, upon questioning patient states that he will stay at a campsite with his boss and will abstain from alcohol until he reports for rehab. - Discharge Data Discharge Date: 03/17/21 Discharge Disposition: Home, Self-Care 01 Condition: Stable - Referral to Home Health Primary Care Physician: PCP None - Patient Instructions Diet: Usual Diet as Tolerated, No Alcoholic Beverages Activity: As Tolerated Driving: Do Not Drive Notify Provider of: Fever, Increased Pain, Nausea and/or Vomiting Other/Special Instructions: TAKE VITAMINS PRESCRIBED. ABSTAIN FROM ALCOHOL CONSUMPTION - Discharge Plan *PRESCRIPTION DRUG MONITORING PROGRAM REVIEWED*: Not Applicable *COPY OF PRESCRIPTION DRUG MONITORING REPORT IN PATIENT EDA: Not Applicable Prescriptions/Med Rec: Folic Acid 1 mg PO BEDTIME 4 Days #4 tab Thiamine [Vitamin B-1] 100 mg PO BEDTIME 2 Days #2 tab Home Medications: Home Meds ARIPiprazole [Abilify] 10 mg PO DAILY 03/13/21 [History] Zolpidem Tartrate 5 mg PO Q2D PRN 03/13/21 [History] hydrOXYzine pamoate [Hydroxyzine Pamoate] 25 mg PO QID PRN 03/13/21 [History] valACYclovir [Valtrex] 1 gm PO BID 03/13/21 [History] Folic Acid 1 mg PO BEDTIME 4 Days #4 tab 03/17/21 [Rx] Thiamine [Vitamin B-1] 100 mg PO BEDTIME 2 Days #2 tab 03/17/21 [Rx] Patient Handouts: Alcohol Withdrawal Syndrome, Finding Treatment for Addiction Referrals: Iva Ponce NP [Nurse Practitioner] - 03/28/21 8:45 am - Discharge Summary/Plan Comment DC Time >30 min.: Yes - General Info Date of Service: 03/17/21 Subjective Update: Patient states he is slightly anxious because he would like to leave the hospital. Denies fever, chills, nausea, vomiting, abdominal pain. Denies tremors or shakiness. - Review of Systems General: Denies: Fever, Chills Pulmonary: Denies: Shortness of Breath Cardiovascular: Denies: Chest Pain, Edema Gastrointestinal: Denies: Abdominal Pain, Nausea, Vomiting Neurological: Denies: Confusion, Dizziness, Headache - Patient Data Vitals - Most Recent: Last Vital Signs Temp 97.6 F 03/17/21 08:00 Pulse 90 03/17/21 08:00 Resp 16 03/17/21 08:00 BP 123/90 03/17/21 08:00 Pulse Ox 99 03/17/21 08:00 Weight - Most Recent: 193 lb I&O - Last 24 hours: Intake & Output 03/16/21 03/17/21 03/17/21 22:59 06:59 14:59 Intake Total 1999 1499 Output Total Balance 1995 1499 Lab Results - Last 24 hrs: Laboratory Results - last 24 hr 03/17/21 03/17/21 Range/Units 08:10 08:10 WBC 7.38 (4.0-11.0) K/uL RBC 4.77 (4.50-5.90) M/uL Hgb 14.7 (13.0-17.0) g/dL Hct 42.2 (38.0-50.0) % MCV 88.5 (80.0-98.0) fL MCH 30.8 (27.0-32.0) pg MCHC 34.8 (31.0-37.0) g/dL RDW Std Deviation 43.7 (28.0-62.0) fl RDW Coeff of Negrita 13 (11.0-15.0) % Plt Count 231 (150-400) K/uL MPV 9.30 (7.40-12.00) fL Neut % (Auto) 49.9 (48.0-80.0) % Lymph % (Auto) 38.9 (16.0-40.0) % [place] % (Auto) 8.8 (0.0-15.0) % Eos % (Auto) 1.9 (0.0-7.0) % Baso % (Auto) 0.5 (0.0-1.5) % Neut # (Auto) 3.7 (1.4-5.7) K/uL Lymph # (Auto) 2.9 H (0.6-2.4) K/uL [place] # (Auto) 0.7 (0.0-0.8) K/uL Eos # (Auto) 0.1 (0.0-0.7) K/uL Baso # (Auto) 0.0 (0.0-0.1) K/uL Nucleated RBC % 0.0 /100WBC Nucleated RBCs # 0 K/uL Sodium 138 (136-148) mmol/L Potassium 4.1 (3.5-5.1) mmol/L Chloride 101 (98-107) mmol/L Carbon Dioxide 28.8 (21.0-32.0) mmol/L BUN 15 (7.0-18.0) mg/dL Creatinine 1.1 (0.8-1.3) mg/dL Est Cr Clr Drug Dosing 115.08 mL/min Estimated GFR (MDRD) > 60.0 ml/min Glucose 109 H (74-106) mg/dL Calcium 9.1 (8.5-10.1) mg/dL Magnesium 2.0 (1.8-2.4) mg/dL Total Bilirubin 0.7 (0.2-1.0) mg/dL AST 163 H (15-37) IU/L ALT 278 H (14-63) IU/L Alkaline Phosphatase 63 (46-116) U/L Total Protein 7.3 (6.4-8.2) g/dL Albumin 3.8 (3.4-5.0) g/dL Globulin 3.5 (2.6-4.0) g/dL Albumin/Globulin Ratio 1.1 (0.9-1.6) Med Orders - Current: Current Medications Acetaminophen (Acetaminophen 325 Mg Tab) 650 mg PO Q4H PRN PRN Reason: Pain/Fever Last Admin: 03/17/21 04:48 Dose: 650 mg Documented by: Diazepam (Diazepam 5 Mg Tab) 5 mg PO DAILY [facility] Last Admin: 03/17/21 08:44 Dose: 5 mg Documented by: Folic Acid (Folic Acid 50 Mg/10 Ml Mdv) 1 mg SUBCUT DAILY [facility] Last Admin: 03/17/21 08:40 Dose: 1 mg Documented by: Pantoprazole Sodium 40 mg/ (Sodium Chloride) 10 mls @ 300 mls/hr IV Q24H [facility] Last Admin: 03/16/21 11:45 Dose: 300 mls/hr Documented by: Lorazepam (Lorazepam 2 Mg/Ml Sdv) 0 mg IVPUSH Q4H PRN; Protocol PRN Reason: CIWWA Last Admin: 03/17/21 04:38 Dose: 2 mg Documented by: Nicotine (Nicotine 21 Mg/24 Hr Patch) 21 mg TRDERM DAILY [facility] Last Admin: 03/17/21 08:44 Dose: 21 mg Documented by: Ondansetron HCl (Ondansetron 4 Mg/2 Ml Sdv) 4 mg IVPUSH Q4H PRN PRN Reason: Nausea Last Admin: 03/13/21 17:40 Dose: 4 mg Documented by: Sodium Chloride (Sodium Chloride 0.9% 2.5 Ml Syringe) 2.5 ml FLUSH ASDIRECTED PRN PRN Reason: Keep Vein Open Thiamine HCl (Thiamine 200 Mg/2 Ml Mdv) 100 mg IVPUSH DAILY [facility] Last Admin: 03/17/21 08:43 Dose: 100 mg Documented by: Discontinued Medications Diazepam (Diazepam 10 Mg/2 Ml Syringe) 5 mg IVPUSH ONETIME ONE Stop: 03/12/21 23:22 Last Admin: 03/12/21 23:25 Dose: 5 mg Documented by: Diazepam (Diazepam 10 Mg/2 Ml Syringe) Confirm Administered Dose 10 mg .ROUTE .STK-MED ONE Stop: 03/12/21 23:24 Last Admin: 03/13/21 00:22 Dose: Not Given Documented by: Diazepam (Diazepam 10 Mg/2 Ml Syringe) 10 mg IVPUSH ONETIME ONE Stop: 03/12/21 23:46 Last Admin: 03/13/21 00:21 Dose: 10 mg Documented by: Diazepam (Diazepam 5 Mg Tab) 5 mg PO BID [facility] Last Admin: 03/13/21 08:29 Dose: 5 mg Documented by: Diazepam (Diazepam 5 Mg Tab) 5 mg PO TID [facility] Last Admin: 03/13/21 15:29 Dose: 5 mg Documented by: Diazepam (Diazepam 5 Mg Tab) 10 mg PO TID [facility] Last Admin: 03/15/21 05:56 Dose: 10 mg Documented by: Diazepam (Diazepam 5 Mg Tab) 10 mg PO BID [facility] Stop: 03/15/21 22:00 Last Admin: 03/15/21 20:29 Dose: 10 mg Documented by: Diazepam (Diazepam 2 Mg Tab) 5 mg PO BEDTIME [facility] Stop: 03/16/21 21:01 Last Admin: 03/16/21 20:03 Dose: 5 mg Documented by: Diphenhydramine HCl (Diphenhydramine 50 Mg/Ml Sdv) 25 mg IVPUSH ONETIME ONE Stop: 03/13/21 21:57 Last Admin: 03/13/21 22:07 Dose: 25 mg Documented by: Diphenhydramine HCl (Diphenhydramine 50 Mg/Ml Sdv) 25 mg IVPUSH ONETIME ONE Stop: 03/14/21 20:18 Last Admin: 03/14/21 20:29 Dose: 25 mg Documented by: Diphenhydramine HCl (Diphenhydramine 50 Mg/Ml Sdv) 25 mg IVPUSH ONETIME ONE Stop: 03/16/21 02:15 Last Admin: 03/16/21 02:23 Dose: 25 mg Documented by: Folic Acid (Folic Acid 1 Mg Tab) 1 mg PO ONETIME ONE Stop: 03/12/21 21:23 Last Admin: 03/12/21 22:19 Dose: 1 mg Documented by: Haloperidol Lactate (Haloperidol Lactate 5 Mg/Ml Sdv) 5 mg IM ONETIME ONE Stop: 03/13/21 21:55 Last Admin: 03/13/21 22:06 Dose: 5 mg Documented by: Haloperidol Lactate (Haloperidol Lactate 5 Mg/Ml Sdv) 5 mg IM ONETIME ONE Stop: 03/14/21 20:18 Last Admin: 03/14/21 20:29 Dose: 5 mg Documented by: Haloperidol Lactate (Haloperidol Lactate 5 Mg/Ml Sdv) 2 mg IM ONETIME ONE Stop: 03/16/21 03:45 Last Admin: 03/16/21 04:04 Dose: 2 mg Documented by: Sodium Chloride (Normal Saline) 1,000 mls @ 125 mls/hr IV ASDIRECTED [facility] Stop: 03/16/21 00:56 Last Admin: 03/15/21 03:56 Dose: 125 mls/hr Documented by: Magnesium Sulfate 4 gm/ Premix 100 mls @ 50 mls/hr IV ONETIME ONE Stop: 03/13/21 10:29 Last Admin: 03/13/21 08:31 Dose: 50 mls/hr Documented by: Magnesium Sulfate 2 gm/ Premix 50 mls @ 25 mls/hr IV ONETIME ONE Stop: 03/15/21 09:59 Last Admin: 03/15/21 09:07 Dose: 25 mls/hr Documented by: Lorazepam (Lorazepam 2 Mg/Ml Sdv) 4 mg IVPUSH ONETIME ONE Stop: 03/13/21 21:54 Last Admin: 03/13/21 22:06 Dose: 4 mg Documented by: Melatonin (Melatonin 3 Mg Tab) 6 mg PO BEDTIME STA Stop: 03/16/21 22:56 Last Admin: 03/16/21 23:47 Dose: 6 mg Documented by: Nicotine (Nicotine 21 Mg/24 Hr Patch) Confirm Administered Dose 21 mg .ROUTE .STK-MED ONE Stop: 03/13/21 01:02 Last Admin: 03/13/21 01:08 Dose: Not Given Documented by: Ondansetron HCl (Ondansetron 4 Mg/2 Ml Sdv) 4 mg IVPUSH ONETIME STA Stop: 03/12/21 21:50 Last Admin: 03/12/21 22:00 Dose: 4 mg Documented by: Potassium Chloride (Potassium Chloride 20 Meq Tab.Er) 40 meq PO BID@0830,1300 [facility] Stop: 03/13/21 13:01 Last Admin: 03/13/21 12:46 Dose: 40 meq Documented by: Sodium Chloride (Sodium Chloride 0.9% 10 Ml Syringe) 10 ml FLUSH ASDIRECTED PRN PRN Reason: Keep Vein Open Sodium Chloride (Sodium Chloride 0.9% 2.5 Ml Syringe) 2.5 ml FLUSH ASDIRECTED PRN PRN Reason: Keep Vein Open Thiamine HCl (Thiamine 100 Mg Tab) 100 mg PO ONETIME ONE Stop: 03/12/21 21:23 Last Admin: 03/12/21 22:19 Dose: 100 mg Documented by: - Exam General: Reports: Alert, Oriented, Cooperative Lungs: Reports: Normal Respiratory Effort Neurological: Reports: Normal Speech Psy/Mental Status: Reports: Alert, Anxious
== END 2021-03-17 11:00 | disposition home or self-care (01) | DRG 897 ==
LOC: MW.ED 20:18 → UNDOADMIN 03-13 00:52 → MW.ICU 03-13 00:52 → MW.OB 03-13 00:52 → MW.MS 03-15 16:35
PROVIDERS: ADMIT Internal Medicine; ATTEND Internal Medicine
DX: F10.139 Alcohol abuse with withdrawal, unspecified (principal); Z20.822 Contact with and (suspected) exposure to COVID-19; E87.6 Hypokalemia; E83.42 Hypomagnesemia; R33.9 Retention of urine, unspecified; G47.00 Insomnia, unspecified; F41.9 Anxiety disorder, unspecified
CPT/HCPCS: 36415; 80053; 80307; 81001; 83735; 84100; 85025; 85610; 96374; 96375; 96376; 99285-25; A9270-GY; C9113; J1200; J1630; J2060; J2405; J3360; J3411; J3475; J7030; U0002

== ENCOUNTER 2021-03-17 16:10 | Emergency (ER) | payer OTHER ==
--- NOTE | 2021-03-17 16:20 | EDM.PDOC ---
<Bryce Green - Last Filed: 03/18/21 06:43> ED HPI GENERAL MEDICAL PROBLEM - General Stated Complaint: NOT FEELING VERY GOOD Time Seen by Provider: 03/17/21 16:12 - Related Data Allergies Allergy/AdvReac Type Severity Reaction Status Date / Time No Known Allergies Allergy Verified 03/16/21 08:04 Home Meds: Home Meds ARIPiprazole [Abilify] 10 mg PO DAILY 03/13/21 [History] Zolpidem Tartrate 5 mg PO Q2D PRN 03/13/21 [History] hydrOXYzine pamoate [Hydroxyzine Pamoate] 25 mg PO QID PRN 03/13/21 [History] valACYclovir [Valtrex] 1 gm PO BID 03/13/21 [History] Folic Acid 1 mg PO BEDTIME 4 Days #4 tab 03/17/21 [Rx] Thiamine [Vitamin B-1] 100 mg PO BEDTIME 2 Days #2 tab 03/17/21 [Rx] #1 Interpretation EKG Interpretation Comments: EKG done 03/17/2021 at 5:24 PM sinus tachycardia heart rate 124 MT 163 [place] II possible atrial enlargement possible right ventricular hypertrophy ST and T are normal impression no acute injury Departure - Departure Disposition: Eloped 07 Clinical Impression: Eloped from emergency department - Discharge Information Referrals: PCP,None [Primary Care Provider] - Forms: ED Department Discharge <MiyaJuliann - Last Filed: 03/18/21 10:48> ED HPI GENERAL MEDICAL PROBLEM - General Source of Information: Reports: Patient History Limitations: Reports: No Limitations - History of Present Illness INITIAL COMMENTS - FREE TEXT/NARRATIVE: HISTORY AND PHYSICAL: History of present illness: The patient is a 35-year-old male that was discharged from this hospital today at 11 AM after being treated for alcohol abuse and detox, presents today after drinking over a quart of vodka taking 20 mg of Ambien and six 25 mg hydroxyzine pills. Patient states that he took the pills because he was tired and sad because he had went out and drink. The patient states that he attempted to vomit after taking the pills. The patient denies any illegal drug use. The patient states that he came to the emergency room because he just does not feel well. The patient had wanted to leave the hospital and that is why he was d ischarged. The patient is wanting something to treat his anxiety, however, he was receiving lorazepam while in the hospital. The patient acknowledges that he needs to stop drinking but is unsure how. Patient denies any fever, chills, headache, change in vision, syncope or near syncope. Denies any chest pain, back pain, shortness of breath or cough. Denies any abdominal pain, diarrhea, constipation or dysuria. Review of systems: As per history of present illness and below otherwise all systems reviewed and negative. Past medical history: As per history of present illness and as reviewed below otherwise noncontributory. Surgical history: As per history of present illness and as reviewed below otherwise noncontributory. Social history: See social history for further information Family history: As per history of present illness and as reviewed below otherwise noncontributory. Physical exam: General: Well developed and well nourished. Alert and orientated x 3. Nontoxic in appearance and in no acute distress. Vital signs are stable and have been reviewed by me. Nursing notes were reviewed. HEENT: Atraumatic, normocephalic, pupils equal and reactive bilaterally, negative for conjunctival pallor or scleral icterus, mucous membranes moist, TMs normal bilaterally, throat clear, neck supple, nontender, trachea midline. No drooling or trismus noted. No meningeal signs. No hot potato voice noted. Lungs: Clear to auscultation bilaterally. No wheezes, rales, or rhonchi. Chest nontender. Normal work of breathing, no accessory muscles used. Heart: S1S2, tachycardic and rhythm without overt murmur, gallops, or rubs. No JVD. No peripheral edema Abdomen: Soft, nondistended, nontender. Normoactive bowel sounds. Negative for masses or costovertebral tenderness. Pelvis: Stable nontender. Genitourinary/Rectal: Deferred. Skin: Intact, warm, dry. No lesions or rashes noted. Hematologic: No petechiae or purpra. Mucosa appropriate color and normal nail bed color and refill. Extremities: Atraumatic, moves all extremities per self without difficulty or deficits, negative for cords or calf pain. Neurovascular unremarkable. Neuro: Awake, alert, oriented. Cranial nerves II through XII unremarkable. Cerebellum unremarkable. Motor and sensory unremarkable throughout. Exam nonfocal. Psychiatric: Mood and affect are appropriate. Normal thought process. Answering questions appropriately. Notes: *This patient was seen and evaluated during the 2019 SARS-CoV-2 novel coronavirus pandemic period. Community viral transmission is ongoing at time of this encounter and the emergency department is operating under pandemic response procedures. As stated above the patient is a 35-year-old who presents to the emergency room after being discharged today at 11:00 from this hospital after being treated for alcohol abuse and detox. The patient went out and drank a quart of vodka and then went home, felt bad about drinking vodka, and took two 10 mg Ambien tabs and 6-25 mg hydroxyzine tabs. The patient then felt bad about taking them and attempted to vomit them up, but he states that he vomited up very little. Upon questioning the patient as to why he took the Ambien and hydroxyzine he stated that I was tired and very sad that I had went out and drank. And then after taking them the patient thought he should expel the medications. The the patient has indicated that he does not want to hurt himself, however, he has been drinking today. I called poison control regarding medication doses and they came from poison control stated that he will tolerate the doses pretty well he just might be a little tired. The patient had indicated to me that he had not taken any kind of illegal drugs such as cocaine. The triage nurse had indicated the patient had said that he had attempted to get a hold of his drug dealer, which he had denied to me. Upon clarification with the patient he called his contact in [place] who then was supposed to call his contact in [facility], but that never happened. The patient is tachycardic with a rate of 136 so I will work the patient up for a mental health exam to include an EKG, blood work, alcohol level, acetaminophen level, and IV fluids. The patient's CBC is unremarkable. The patient's CMP is unremarkable except for his AST is 190 and ALT is 332. The patient's troponin is less than 0.050. The patient salicylate level is 1.1. The patient's acetaminophen level is less than 2.0. The patient's EtOH level is 143. The patient eloped at 1756 with his IV in place. The [place] police department has been called for notification of the patient leaving the hospital with IV in place. The nursing staff was able to retrieve the IV. The patient has walked back into the emergency department to be seen. 193 I went back to check on the patient and there is nobody and overflow. Nurses told me the patient eloped again. Diagnostics: CBC, CMP, salicylate, acetaminophen, magnesium, EKG, drug screen, troponin, EtOH Therapeutics: IV fluids Prescription: Impression: Plan: 1. You were evaluated today on an emergent basis. Your 2. You can alternate Tylenol and ibuprofen as needed for pain and fever aydin castrejon. 3. We encourage you to follow up with your primary care provider and/or recommended specialist in the next few days for re-evaluation and further care/management. 4. If your symptoms should worsen, new symptoms develop or any of the signs and symptoms we discussed should arise please return to the emergency room or call 911 (if needed). Definitive disposition and diagnosis as appropriate pending reevaluation and review of above. head Pain Score (Numeric/FACES): 5 Past Medical History - Past Health History Medical/Surgical History: Denies Medical/Surgical History Psychiatric History: Reports: Anxiety Social & Family History - Family History Family Medical History: No Pertinent Family History ED ROS GENERAL - Review of Systems Review Of Systems: Comprehensive ROS is negative, except as noted in HPI. ED EXAM, GENERAL - Physical Exam Exam: See Below (See dictation) Course - Vital Signs Last Recorded V/S: Last Vital Signs Temp 97.0 F 03/17/21 16:34 Pulse 136 H 03/17/21 16:34 Resp 18 03/17/21 16:34 BP 108/74 03/17/21 16:34 Pulse Ox 96 03/17/21 16:34 - Orders/Labs/Meds Orders: Active Orders 24 hr Category Date Time Status Saline Lock Insert [OM.PC] Stat Oth 03/17/21 16:53 Ordered Labs: Laboratory Tests 03/17/21 03/17/21 03/17/21 Range/Units 17:15 17:15 17:15 WBC 7.62 (4.0-11.0) K/uL RBC 5.02 (4.50-5.90) M/uL Hgb 15.5 (13.0-17.0) g/dL Hct 43.9 (38.0-50.0) % MCV 87.5 (80.0-98.0) fL MCH 30.9 (27.0-32.0) pg MCHC 35.3 (31.0-37.0) g/dL RDW Std Deviation 43.3 (28.0-62.0) fl RDW Coeff of Negrita 14 (11.0-15.0) % Plt Count 267 (150-400) K/uL MPV 9.40 (7.40-12.00) fL Neut % (Auto) 64.0 (48.0-80.0) % Lymph % (Auto) 29.9 (16.0-40.0) % [place] % (Auto) 5.1 (0.0-15.0) % Eos % (Auto) 0.7 (0.0-7.0) % Baso % (Auto) 0.3 (0.0-1.5) % Neut # (Auto) 4.9 (1.4-5.7) K/uL Lymph # (Auto) 2.3 (0.6-2.4) K/uL [place] # (Auto) 0.4 (0.0-0.8) K/uL Eos # (Auto) 0.1 (0.0-0.7) K/uL Baso # (Auto) 0.0 (0.0-0.1) K/uL Nucleated RBC % 0.0 /100WBC Nucleated RBCs # 0 K/uL Sodium 140 (136-148) mmol/L Potassium 4.0 (3.5-5.1) mmol/L Chloride 103 (98-107) mmol/L Carbon Dioxide 22.1 (21.0-32.0) mmol/L BUN 13 (7.0-18.0) mg/dL Creatinine 0.8 (0.8-1.3) mg/dL Est Cr Clr Drug Dosing 152.97 mL/min Estimated GFR (MDRD) > 60.0 ml/min Glucose 100 (74-106) mg/dL Calcium 9.4 (8.5-10.1) mg/dL Magnesium 2.1 (1.8-2.4) mg/dL Total Bilirubin 0.4 (0.2-1.0) mg/dL AST 190 H (15-37) IU/L ALT 332 H (14-63) IU/L Alkaline Phosphatase 68 (46-116) U/L Troponin I < 0.050 (0.000-0.056) ng/mL Total Protein 8.1 (6.4-8.2) g/dL Albumin 4.4 (3.4-5.0) g/dL Globulin 3.7 (2.6-4.0) g/dL Albumin/Globulin Ratio 1.2 (0.9-1.6) Salicylates 1.1 (0-20) mg/dL Acetaminophen <2.0 ug/mL Ethyl Alcohol 143 mg/dL Meds: Medications Discontinued Medications Generic Name Dose Route Start Last Admin Trade Name Freq PRN Reason Stop Dose Admin Sodium Chloride 10 ml 03/17/21 16:54 Sodium Chloride 0.9% 10 Ml Syringe FLUSH ASDIRECTED PRN Keep Vein Open Sodium Chloride 2.5 ml 03/17/21 16:54 Sodium Chloride 0.9% 2.5 Ml Syringe FLUSH ASDIRECTED PRN Keep Vein Open Departure - Departure Time of Disposition: 18:20 - My Orders Last 24 Hours: My Active Orders 03/17/21 16:53 Saline Lock Insert [OM.PC] Stat - Assessment/Plan Last 24 Hours: My Active Orders 03/17/21 16:53 Saline Lock Insert [OM.PC] Stat
[2021-03-17] MEDS ORDERED: Sodium Chloride 0.9% 10 ML Syringe FLUSH PRN (16:54)
[2021-03-17] MEDS ORDERED: Sodium Chloride 0.9% 2.5 ML Syringe FLUSH PRN (16:54)
[2021-03-17 17:52] LABS: BLOOD UREA NITROGEN,BUN 13 mg/dL (7.0-18.0); CARBON DIOXIDE,CO2 22.1 mmol/L (21.0-32.0); CHLORIDE,CL 103 mmol/L (98-107); GLUCOSE RANDOM 100 mg/dL (74-106); SODIUM,NA 140 mmol/L (136-148)
[2021-03-17 17:53] LABS: ACETAMINOPHEN <2.0 ug/mL
== END 2021-03-17 17:40 | disposition left against medical advice (07) ==
LOC: MW.ED 16:10
DX: F10.129 Alcohol abuse with intoxication, unspecified (principal); Z53.8 Procedure and treatment not carried out for other reasons
CPT/HCPCS: 36415; 80053; 80143; 80179; 80307; 83735; 84484; 85025; 93005; 99285-25

== ENCOUNTER 2021-08-10 12:05 | Emergency (ER) | payer SELFPAY ==
[2021-08-10] MEDS ORDERED: Sodium Chloride 0.9% 2.5 ML Syringe FLUSH PRN (12:47)
[2021-08-10] MEDS ORDERED: Sodium Chloride 0.9% 10 ML Syringe FLUSH PRN (12:47)
[2021-08-10 12:54] LABS: CORONAVIRUS COVID-19 NAA NEGATIVE (NEGATIVE); INFLUENZA A NAA NEGATIVE (NEGATIVE); INFLUENZA B NAA NEGATIVE (NEGATIVE)
[2021-08-10] MEDS ORDERED: LORazepam 1 MG Tab PO ONE (13:07)
[2021-08-10] MEDS ORDERED: Ondansetron 4 MG Tab.DIS PO ONE (13:09)
--- NOTE | 2021-08-10 13:10 | EDM.PDOC ---
ED HPI GENERAL MEDICAL PROBLEM - General Chief Complaint: General Stated Complaint: SOB,FEVER,CANT KEEP ANYTHING DOWN Time Seen by Provider: 08/10/21 12:46 - History of Present Illness INITIAL COMMENTS - FREE TEXT/NARRATIVE: History of present illness: [] The patient feels sick nauseated and has tremors. He started feeling this way on 04 August. He had reduced his alcohol intake although he did drink some yesterday. He feels like he might be withdrawing. He is gotten tremulous before with withdrawal. He has never had a seizure that he knows of but is not sure. The patient vapes tobacco. The patient has had intermittent high blood pressure readings although he is on no medication for high blood pressure cholesterol or diabetes. The patient is nauseated and vomiting. Patient has never had a seizure or DTs when he withdrawals from alcohol. Review of systems: As per history of present illness and below otherwise all systems reviewed and negative. Past medical history: As per history of present illness and as reviewed below otherwise noncontributory. Surgical history: As per history of present illness and as reviewed below otherwise noncontributory. Social history: No reported history of drug or alcohol abuse. Family history: As per history of present illness and as reviewed below otherwise noncontributory. Physical exam: Constitutional - well developed, well-nourished and in no acute distress HEENT - normocephalic, no evidence of trauma - external nose and mouth normal - no mass in neck and no JVD - mucosae moist EYES - full EOM, PERRL, no icterus - no evidence of inflammation, injection, or drainage Respiratory - no respiratory distress, equal bilateral expansion, lungs clear to auscultation and no abnormal lung sounds Cardiovascular - Regular Rhythm with S1 and S2 appreciated and no murmur, gallop or rub. GI - abdomen soft without distension or organomegaly - normal bowel sounds - no guard or rebound Musculoskeletal no gross deformity of long bones or joints - no tenderness, swelling or edema Neurologic -tremor at rest. Alert and oriented times four - CN II-XII grossly intact - motor sensory and coordination symmetrically normal Psychiatric - appropriate mood and affect with normal thought content Hematologic - No petechiae or purpura - mucosa appropriate color and sclera not pale - normal nail bed color and refill Integument - no rash or evidence of trauma - normal turgor Diagnostics: [] Therapeutics: [] Impression: [] Plan: [] Definitive disposition and diagnosis as appropriate pending reevaluation and review of above. general body aches Pain Score (Numeric/FACES): 5 - Related Data Allergies Allergy/AdvReac Type Severity Reaction Status Date / Time No Known Allergies Allergy Verified 03/16/21 08:04 Home Meds: Home Meds ARIPiprazole [Abilify] 10 mg PO DAILY 03/13/21 [History] Zolpidem Tartrate 5 mg PO Q2D PRN 03/13/21 [History] hydrOXYzine pamoate [Hydroxyzine Pamoate] 25 mg PO QID PRN 03/13/21 [History] valACYclovir [Valtrex] 1 gm PO BID 03/13/21 [History] Folic Acid 1 mg PO BEDTIME 4 Days #4 tab 03/17/21 [Rx] Thiamine [Vitamin B-1] 100 mg PO BEDTIME 2 Days #2 tab 03/17/21 [Rx] chlordiazePOXIDE [Librium] 50 mg PO Q6H PRN #15 cap 08/10/21 [Rx] Past Medical History - Past Health History Medical/Surgical History: Denies Medical/Surgical History Psychiatric History: Reports: Anxiety - Infectious Disease History Infectious Disease History: Reports: Chicken Pox Social & Family History - Family History Family Medical History: No Pertinent Family History ED ROS GENERAL - Review of Systems Review Of Systems: Comprehensive ROS is negative, except as noted in HPI. ED EXAM, GENERAL - Physical Exam Exam: See Below Free Text/Narrative:: My physical exam is in the HPI #1 Interpretation EKG Interpretation Comments: EKG done 08/10/2021 1:33 PM shows sinus rhythm with a heart rate of 91 OR interval 128 and QT duration 459. [place] -11. QRS ST and T normal impression normal Course - Vital Signs Last Recorded V/S: Last Vital Signs Temp 37.4 C 08/10/21 12:28 Pulse 120 H 08/10/21 12:28 Resp 20 08/10/21 12:28 BP 176/100 H 08/10/21 12:28 Pulse Ox 94 L 08/10/21 12:28 - Orders/Labs/Meds Orders: Active Orders 24 hr Category Date Time Status Sodium Chloride 0.9% [Saline Flush] Med 08/10/21 12:47 Active 10 ml FLUSH ASDIRECTED PRN Sodium Chloride 0.9% [Saline Flush] Med 08/10/21 12:47 Active 2.5 ml FLUSH ASDIRECTED PRN Saline Lock Insert [OM.PC] Stat Oth 08/10/21 12:47 Ordered Medication Orders Sodium Chloride (Sodium Chloride 0.9% 10 Ml Syringe) 10 ml FLUSH ASDIRECTED PRN PRN Reason: Keep Vein Open Last Admin: 08/10/21 13:46 Dose: 10 ml Documented by: SERINA Sodium Chloride (Sodium Chloride 0.9% 2.5 Ml Syringe) 2.5 ml FLUSH ASDIRECTED PRN PRN Reason: Keep Vein Open Last Admin: 08/10/21 13:46 Dose: 2.5 ml Documented by: SERINA Labs: Laboratory Tests 08/10/21 08/10/21 08/10/21 Range/Units 12:10 12:23 12:23 WBC 6.77 (4.0-11.0) K/uL RBC 5.14 (4.50-5.90) M/uL Hgb 15.9 (13.0-17.0) g/dL Hct 44.5 (38.0-50.0) % MCV 86.6 (80.0-98.0) fL MCH 30.9 (27.0-32.0) pg MCHC 35.7 (31.0-37.0) g/dL RDW Std Deviation 41.4 (28.0-62.0) fl RDW Coeff of Negrita 13 (11.0-15.0) % Plt Count 232 (150-400) K/uL MPV 8.80 (7.40-12.00) fL Neut % (Auto) 62.6 (48.0-80.0) % Lymph % (Auto) 27.5 (16.0-40.0) % [place] % (Auto) 9.2 (0.0-15.0) % Eos % (Auto) 0.0 (0.0-7.0) % Baso % (Auto) 0.7 (0.0-1.5) % Neut # (Auto) 4.2 (1.4-5.7) K/uL Lymph # (Auto) 1.9 (0.6-2.4) K/uL [place] # (Auto) 0.6 (0.0-0.8) K/uL Eos # (Auto) 0.0 (0.0-0.7) K/uL Baso # (Auto) 0.1 (0.0-0.1) K/uL Nucleated RBC % 0.0 /100WBC Nucleated RBCs # 0 K/uL Sodium 138 (136-148) mmol/L Potassium 3.7 (3.5-5.1) mmol/L Chloride 97 L (98-107) mmol/L Carbon Dioxide 26.7 (21.0-32.0) mmol/L Creatinine 1.0 (0.8-1.3) mg/dL Est Cr Clr Drug Dosing 126.58 mL/min Estimated GFR (MDRD) > 60.0 ml/min Glucose 124 H (74-106) mg/dL Total Bilirubin 1.1 H (0.2-1.0) mg/dL AST 43 H (15-37) IU/L ALT 43 (14-63) IU/L Alkaline Phosphatase 85 (46-116) U/L Troponin I < 0.050 (0.000-0.056) ng/mL Total Protein 8.2 (6.4-8.2) g/dL Albumin 4.4 (3.4-5.0) g/dL Globulin 3.8 (2.6-4.0) g/dL Albumin/Globulin Ratio 1.2 (0.9-1.6) Lipase 81 (73-393) U/L Urine Color Urine Appearance Urine pH (5.0-8.0) Ur Specific [place] (1.001-1.035) Urine Protein (NEGATIVE) mg/dL Urine Glucose (UA) (NEGATIVE) mg/dL Urine Ketones (NEGATIVE) mg/dL Urine Occult Blood (NEGATIVE) Urine Nitrite (NEGATIVE) Urine Bilirubin (NEGATIVE) Urine Urobilinogen (<2.0) EU/dL Ur Leukocyte Esterase (NEGATIVE) Urine RBC (0-2/HPF) Urine WBC (0-5/HPF) Ur Epithelial Cells (NONE-FEW) Urine Bacteria (NEGATIVE) Urine Mucus (NONE-MOD) Influenza Type A RNA NEGATIVE (NEGATIVE) Influenza Type B RNA NEGATIVE (NEGATIVE) SARS-CoV-2 RNA (SYEDA) NEGATIVE (NEGATIVE) 08/10/21 Range/Units 13:51 WBC (4.0-11.0) K/uL RBC (4.50-5.90) M/uL Hgb (13.0-17.0) g/dL Hct (38.0-50.0) % MCV (80.0-98.0) fL MCH (27.0-32.0) pg MCHC (31.0-37.0) g/dL RDW Std Deviation (28.0-62.0) fl RDW Coeff of Negrita (11.0-15.0) % Plt Count (150-400) K/uL MPV (7.40-12.00) fL Neut % (Auto) (48.0-80.0) % Lymph % (Auto) (16.0-40.0) % [place] % (Auto) (0.0-15.0) % Eos % (Auto) (0.0-7.0) % Baso % (Auto) (0.0-1.5) % Neut # (Auto) (1.4-5.7) K/uL Lymph # (Auto) (0.6-2.4) K/uL [place] # (Auto) (0.0-0.8) K/uL Eos # (Auto) (0.0-0.7) K/uL Baso # (Auto) (0.0-0.1) K/uL Nucleated RBC % /100WBC Nucleated RBCs # K/uL Sodium (136-148) mmol/L Potassium (3.5-5.1) mmol/L Chloride (98-107) mmol/L Carbon Dioxide (21.0-32.0) mmol/L Creatinine (0.8-1.3) mg/dL Est Cr Clr Drug Dosing mL/min Estimated GFR (MDRD) ml/min Glucose (74-106) mg/dL Total Bilirubin (0.2-1.0) mg/dL AST (15-37) IU/L ALT (14-63) IU/L Alkaline Phosphatase (46-116) U/L Troponin I (0.000-0.056) ng/mL Total Protein (6.4-8.2) g/dL Albumin (3.4-5.0) g/dL Globulin (2.6-4.0) g/dL Albumin/Globulin Ratio (0.9-1.6) Lipase (73-393) U/L Urine Color DARK YELLOW Urine Appearance CLEAR Urine pH 6.5 (5.0-8.0) Ur Specific [place] >= 1.030 (1.001-1.035) Urine Protein 100 H (NEGATIVE) mg/dL Urine Glucose (UA) NEGATIVE (NEGATIVE) mg/dL Urine Ketones TRACE H (NEGATIVE) mg/dL Urine Occult Blood NEGATIVE (NEGATIVE) Urine Nitrite NEGATIVE (NEGATIVE) Urine Bilirubin NEGATIVE (NEGATIVE) Urine Urobilinogen 1.0 (<2.0) EU/dL Ur Leukocyte Esterase NEGATIVE (NEGATIVE) Urine RBC 0-1 (0-2/HPF) Urine WBC 0-1 (0-5/HPF) Ur Epithelial Cells RARE (NONE-FEW) Urine Bacteria 1+ H (NEGATIVE) Urine Mucus HEAVY (NONE-MOD) Influenza Type A RNA (NEGATIVE) Influenza Type B RNA (NEGATIVE) SARS-CoV-2 RNA (SYEDA) (NEGATIVE) Meds: Medications Generic Name Dose Route Start Last Admin Trade Name Mitchell PRN Reason Stop Dose Admin Sodium Chloride 10 ml 08/10/21 12:47 08/10/21 13:46 Sodium Chloride 0.9% 10 Ml Syringe FLUSH 10 ml ASDIRECTED PRN Administration Keep Vein Open Sodium Chloride 2.5 ml 08/10/21 12:47 08/10/21 13:46 Sodium Chloride 0.9% 2.5 Ml Syringe FLUSH 2.5 ml ASDIRECTED PRN Administration Keep Vein Open Discontinued Medications Generic Name Dose Route Start Last Admin Trade Name Mitchell PRN Reason Stop Dose Admin Chlordiazepoxide HCl 25 mg 08/10/21 14:36 08/10/21 14:52 Chlordiazepoxide 25 Mg Cap PO 08/10/21 14:37 25 mg ONETIME ONE Administration Chlordiazepoxide HCl 25 mg 08/10/21 15:02 08/10/21 15:07 Chlordiazepoxide 25 Mg Cap PO 08/10/21 15:03 25 mg ONETIME ONE Administration Lactated Ringer's 1,000 mls @ 1,000 mls/hr 08/10/21 14:35 08/10/21 14:52 Ringers, Lactated IV 08/10/21 15:34 1,000 mls/hr .BOLUS ONE Administration Lorazepam 2 mg 08/10/21 13:07 08/10/21 13:46 Lorazepam 1 Mg Tab PO 08/10/21 13:08 2 mg ONETIME ONE Administration Ondansetron HCl 4 mg 08/10/21 13:09 08/10/21 13:47 Ondansetron 4 Mg Tab.Dis PO 08/10/21 13:10 4 mg ONETIME ONE Administration - Re-Assessments/Exams Free Text/Narrative Re-Assessment/Exam: 08/10/21 14:36 Still feels jumpy and not able to rest 08/10/21 15:02 Patient had a CIWA score of 20. He is more relaxed now blood pressure improving and pulse improving. [place] and has an AA sponsor. Patient feels like he could avoid drinking and take some medication to soften the withdrawal symptoms and be managed at home [place]. Departure - Departure Time of Disposition: 15:50 Disposition: Home, Self-Care 01 Condition: Good Clinical Impression: Alcohol withdrawal - Discharge Information Prescriptions: chlordiazePOXIDE [Librium] 50 mg PO Q6H PRN #15 cap PRN Reason: Withdrawal Symptoms Instructions: Alcohol Withdrawal Syndrome, [id number] Referrals: PCP,None [Primary Care Provider] - Forms: ED Department Discharge Additional Instructions: Keep in touch with your AA sponsor. Return if worse. Failure prescription meds [facility] in [facility] pharmacy before 6 PM tonight. Otherwise there is no pharmacy open [place] until Friday. [facility] Address: [address] [place] [id number] Hours: walk in 9 AM M-F The following information is given to patients seen in the emergency department who are being discharged to home. This information is to outline your options for follow-up care. We provide all patients seen in our emergency department with a follow-up referral. The need for follow-up, as well as the timing and circumstances, are variable depending upon the specifics of your emergency department visit. If you don't have a primary care physician on staff, we will provide you with a referral. We always advise you to contact your personal physician following an emergency department visit to inform them of the circumstance of the visit and for follow-up with them and/or the need for any referrals to a consulting specialist. The emergency department will also refer you to a specialist when appropriate. This referral assures that you have the opportunity for follow-up care with a specialist. All of these measure are taken in an effort to provide you with optimal care, which includes your follow-up. Under all circumstances we always encourage you to contact your private griselda grossan who remains a resource for coordinating your care. When calling for follow-up care, please make the office aware that this follow-up is from your recent emergency room visit. If for any reason you are refused follow-up, please contact the [facility] Emergency Department at and asked to speak to the emergency department charge nurse. Sepsis Event Note (ED) - Evaluation Sepsis Screening Result: No Definite Risk - Focused Exam Vital Signs: Vital Signs Temp Pulse Resp BP Pulse Ox 08/10/21 12:28 37.4 C 120 H 20 176/100 H 94 L - My Orders Last 24 Hours: My Active Orders 08/10/21 12:47 Sodium Chloride 0.9% [Saline Flush] 10 ml FLUSH ASDIRECTED PRN Sodium Chloride 0.9% [Saline Flush] 2.5 ml FLUSH ASDIRECTED PRN Saline Lock Insert [OM.PC] Stat - Assessment/Plan Last 24 Hours: My Active Orders 08/10/21 12:47 Sodium Chloride 0.9% [Saline Flush] 10 ml FLUSH ASDIRECTED PRN Sodium Chloride 0.9% [Saline Flush] 2.5 ml FLUSH ASDIRECTED PRN Saline Lock Insert [OM.PC] Stat
[2021-08-10 13:54] LABS: CARBON DIOXIDE,CO2 26.7 mmol/L (21.0-32.0); CHLORIDE,CL 97 mmol/L (98-107); GLUCOSE RANDOM 124 mg/dL (74-106); LIPASE 81 U/L (73-393); POTASSIUM,K 3.7 mmol/L (3.5-5.1); SODIUM,NA 138 mmol/L (136-148)
--- NOTE | 2021-08-10 14:10 | CR ---
INDICATION: Hypertension TECHNIQUE: Chest radiograph 1 view COMPARISON: None FINDINGS: Mediastinum: The mediastinum is normal in appearance. The heart silhouette is normal in size and morphology. Lung: Both lungs are unremarkable in appearance. No sign of pleural effusion seen. No pneumothorax is identified. Bone and Soft tissue: Unremarkable for age. Remote fracture deformity of the right clavicle is noted. IMPRESSION: 1. No acute cardiopulmonary disease is seen. Dictated by: Kannan Peralta MD @ 08/10/2021 14:08:48 (Electronically Signed)
[2021-08-10] MEDS ORDERED: Lactated Ringers 1,000 ML IV ONE (14:35)
[2021-08-10] MEDS ORDERED: chlordiazePOXIDE 25 MG Cap PO ONE ×2 (14:36→15:02)
== END 2021-08-10 16:07 | disposition home or self-care (01) ==
LOC: MW.ED 12:05
DX: F10.239 Alcohol dependence with withdrawal, unspecified (principal); Z79.899 Other long term (current) drug therapy; Z20.822 Contact with and (suspected) exposure to COVID-19
CPT/HCPCS: 0240U; 36415; 71045; 80053; 81001; 83690; 84484; 85025; 93005; 99285; A9270; J7120

== ENCOUNTER 2022-08-30 01:55 | Emergency (ER) | payer SELFPAY ==
[2022-08-30] MEDS ORDERED: Ketorolac 30 MG/ML SDV IVPUSH ONE (02:11)
[2022-08-30] MEDS ORDERED: Sodium Chloride 0.9% 1,000 ML IV ONE (02:13)
[2022-08-30] MEDS ORDERED: Acetaminophen 500 MG Tab PO ONE (03:34)
[2022-08-30] MEDS ORDERED: Acetaminophen 500 MG Tab ONE (03:39)
== END 2022-08-30 03:55 | disposition home or self-care (01) ==
LOC: MW.ED 01:55
DX: S39.92XA Unspecified injury of lower back, initial encounter (principal); W01.198A Fall on same level from slipping, tripping and stumbling with subsequent striking against other object, initial encounter
CPT/HCPCS: 70450; 72125; 72131; 96361; 96374; 99284; A9270; J1885; J7030; 99283

== ENCOUNTER 2022-09-10 02:36 | Emergency (ER) | payer SELFPAY ==
[2022-09-10] MEDS ORDERED: Ketorolac 30 MG/ML SDV IVPUSH ONE (02:54)
[2022-09-10] MEDS ORDERED: Ondansetron 4 MG/2 ML SDV IVPUSH ONE (02:54)
[2022-09-10] MEDS ORDERED: Dextrose 5%-Lactated Ringers 1,000 ML IV SCH (03:00)
[2022-09-10 03:47] LABS: CARBON DIOXIDE,CO2 30.1 mmol/L (21.0-32.0); POTASSIUM,K 3.5 mmol/L (3.5-5.1)
[2022-09-10] MEDS ORDERED: Famotidine 20 MG Tab PO ONE (04:04)
[2022-09-10] MEDS ORDERED: Lidocaine 5% 700 MG Patch TRDERM ONE (04:05)
[2022-09-10] MEDS ORDERED: Alum Hydro/Mag Hydro/Simeth XS 15 ML, Lidocaine 2% 5 ML PO ONE ×2 (04:05)
== END 2022-09-10 05:30 | disposition home or self-care (01) ==
LOC: MW.ED 02:36
DX: M54.6 Pain in thoracic spine (principal); K70.10 Alcoholic hepatitis without ascites; F10.129 Alcohol abuse with intoxication, unspecified; R06.6 Hiccough; Y90.8 Blood alcohol level of 240 mg/100 ml or more; Z20.822 Contact with and (suspected) exposure to COVID-19
CPT/HCPCS: 36415; 80053; 80307; 81001; 83690; 83735; 85025; 85610; 87635; 96361; 96374; 96375; 99284; A9270; J1885; J2405; J7121; U0002